=== PATIENT | female | born 1950 | race Caucasian/White ===

== ENCOUNTER 2020-01-23 05:54 | Inpatient (IN) | payer OTHER ==
[2020-01-17 10:37] LABS: Absolute Lymphocytes (CBC) 2.4 K/uL (0.7-4.9); Basophils % 0.6 % (0-1.3); Hematocrit 44.7 % (36.0-45.0); MPV 7.7 fL (7.6-11.3); RBC Red Blood Cell Count 5.21 M/uL (3.86-4.86)
--- NOTE | 2020-01-17 10:40 | RAD REPORT ---
EXAM DESCRIPTION: RAD - Chest Pa And Lat (2 Views) - 01/17/2020 10:29 am CLINICAL HISTORY: pre op, pending knee replacement COMPARISON: Portable August 2017 ; two view chest July 2014 TECHNIQUE: Frontal and lateral views of the chest were obtained. FINDINGS: The lungs are clear. Interstitial pattern matches comparison. Left hemidiaphragm elevatio n again noted. Heart size is normal and central vasculature is within normal limits. No pleural effu helio or pneumothorax seen. No acute bony finding noted. No aortic abnormality. IMPRESSION: No acute cardiopulmonary process. No significant change from comparison.
[2020-01-17 10:42] LABS: Protime INR 0.93
--- OUTSIDE RECORDS SUMMARY | 2020-01-23 05:56 | XMS REPORT ---
:1950 Author Organization eClinicalWorks Care Team Providers Name Role Phone Donald Holly Provider Role Unavailable Allergies No Known Allergies Problems Problem Type Condition Code Onset Dates Condition Statu s Problem Chronic obstructive pulmonary J44.9 Active disease Problem Cataract H26.9 Active Problem Hypercholesteremia E78.00 Active Problem Environmental allergies Z91.09 Acti ve Problem Gastroesophageal reflux disease, K21.9 Active esophagitis presence not specified Problem Primary osteoarthritis of right M17.11 Active knee Problem Anxiety F41.9 Active Problem Benign essential HTN I10 Active Problem Conductive hearing loss, bilateral H90.0 Active Problem 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
--- OUTSIDE RECORDS SUMMARY | 2020-01-23 05:56 | XMS REPORT | Continuity of Care Document ---
:1950 Author Organization [facility] t Address [address] [place] [address] Care Team Providers Name Role Phone Jesus CHINCHILLA Attending Clinician Pc, Echo Room 1 - Attending Clinician Unavailable Problems Condition Condition Condition Status Onset Resolution Last Treating Co mments Source Name Details Category Date Date Treatment Clinician Date Complete Complete Problem Active [facility] traumatic [facility] - amputation amputation Me moria at elbow at elbow l level, level, Outpati right arm, right arm, en t subsequent subsequent Cl inics encounter encounter Muscular Muscular Problem [facility] dyst[facility] Phantom Phantom Problem Active [facility] limb pain limb pain [facility] Gastroesop Gastroesop Problem Active [facility] hageal hageal [facility] - reflux reflux Memoria disease, disease, l esophagiti esophagiti Ou tpati s presence s presence en t not not Clinics specified specified Hyperchole Hyperchole Problem Active [facility] steremia steremia [facility] Chronic Chronic Problem Active [facility] obstructiv obstructiv Jackelyn kes - e e Memoria pulmonary pulmonary l disease disease Outpati ent Clinics Osteoarthr Osteoarthr Problem Active [facility] itis of itis of [facility] - both knees both knees Me moria l Outpati ent Clinics Benign Benign Problem Active [facility] essential essential Luke s - HTN HTN [facility] Cataract Cataract Problem [facility] Anxiety Anxiety Problem Active [facility] Conductive Conductive Problem Active [facility] hearing hearing [facility] - loss, loss, Memoria bilateral bilateral l Outpati ent [facility] Problem Active [facility] brisa brisa [facility] - allergies allergies Geoffrey chanel l [facility] Elevated Elevated Problem Active [facility] serum serum [facility] - creatinine creatinine Me moria l [facility] Prediabete Prediabete Problem Active [facility] Primary Primary Diagnosis Active [facility] osteoarthr osteoarthr Jackelyn kes - itis of itis of Memoria right knee right knee l [facility] Pain, Pain, Diagnosis Active [facility] joint, joint, [facility] - knee, knee, Memoria right right l [facility] Allergies, Adverse Reactions, Alerts This patient has no known allergies or adverse reactions. Medications Ordered Filled Start Stop Current Ordering Indication Dosage Frequency Signature Comments Components Source Medication Medication Date Date Medication? Clinician (SIG) Name Name Boy Brunson Yes Donald [address] [facility] 7-01 Holly as needed [facility] - 00:[facility]: Memoria 00 l [facility] Atorvastati Atorvastati 2018-07 Yes Donald [address] [facility] n Calcium n Calcium 1-20 Holly [facility] - [facility]: Memoria 00 l [facility] Arnuity Arnuity Yes Donald [address] [facility] Ellipta Ellipta Holly [facility] Xopenex HFA Xopenex HFA Yes Donald [address] [facility] Holly needed [facility] Stiolto Stiolto Yes Donald [address] Respimat Respimat [facility] Losartan Losartan Yes Donald [address] [facility] Amlodipine Amlodipine Yes Donald [address] Besylate Besylate [facility] Furosemide Furosemide Yes Donald 1 tab(s) [facility] Holly once a day [facility] - orally 90 Memoria days l [facility] Pantoprazol Pantoprazol Yes Donald 1 tab(s) [facility] e Sodium e Sodium Holly once a day L ukes - orally 90 Memoria days l [facility] Lorazepam Lorazepam Yes Donald [address] Holly [facility] Meloxicam Meloxicam Yes Donald [address] [facility] Holly [facility] Tramadol Tramadol Yes Donald not [facility] HCl HCl Holly defined [facility] Lorazepam Lorazepam Yes Donald not [facility] Holly defined [facility] Xarelto Xarelto Yes Donald [address] [facility] Immunizations Ordered Filled Immunization Date Status Comments Sour e Immunization Name Name PNEUMAVAX 23 PNEUMAVAX 23 2019-06-[address] Shlomo es - 00:00:00 [facility] Procedures This patient has no known procedures. Encounters Start End Encounter Admission Attending Care Care Encounter Source Date/Time Date/Time Type Type Clinicians Facility Department ID 2020-01-16 2020-01-16 [facility] [id number] [address] 10:45[facility]00 10:45[facility]00 [facility] 2020-01-15 2020-01-15 [facility] [id number] [address] 10:00[facility]00 10:00:00 [facility] 2019-11-26 2019-11-26 [facility] [id number] 14:47:00 14:47:00 [facility] 2019-10-16 2019-10-16 [facility] [id number] 13[facility]50:00 13:50:00 [facility] 2019-10-04 2019-10-04 [facility] [id number] 14:01:00 14:01:00 t [facility] 2019-09-21 2019-09-21 Telephone [facility], [facility] [id number] 00:00:00 00:00:00 [facility] [id number] [place] [id number] [place] [address] [phone] Primary & 059 Specialty Care 2019-09-17 2019-09-17 [facility] [id number] 15:39:00 15:39:00 [facility] 2019-08-29 2019-09-11 Office Jesus, [facility] [id number] 12:40:30 00:40:53 [facility] [id number] [place] [id number] Professio [phone] nal 059 [facility] 2019-09-10 2019-09-10 Laboratory Pc, Adc [facility] [id number] 14:45:04 15:45:04 Only Echo Room 1 [place] [id number] - [place] [id number] Professio [phone] nal 059 [facility] 2019-08-06 2019-08-06 [facility] [id number] 10:40:00 10:40:00 [facility] 2019-08-03 2019-08-03 [facility] [id number] 09:35:00 09:35:00 t [facility] 2019-07-31 2019-07-31 [facility] [id number] 14:00:00 14:00:00 t [facility] 2019-06-06 2019-06-06 [facility] [id number] 15:00:00 15:00:00 t Butch Rae [facility] 2019-05-07 2019-05-07 [facility] [id number] 15:00:00 15:00:00 [facility] 2019-04-05 2019-04-05 [facility] [id number] 14:40:00 14:40:00 t Butch Rae [facility] 2019-01-23 2019-01-23 [facility] [id number] 15:30:00 15:30:00 t [facility] 2019-01-16 2019-01-16 [facility] [id number] 15:30:00 15:30:00 t [facility] 2019-01-09 2019-01-09 [facility] [id number] 14:00:00 14:00:00 t [facility] 2019-01-09 2019-01-09 [facility] [id number] 09:40:00 09:40:00 t Butch Rae [facility] 2018-09-04 2018-09-04 [facility] [id number] 13:30:00 13:30:00 t [facility] 2018-07-03 2018-07-03 [facility] [id number] 10:00:00 10:00:00 t [facility] 2018-06-26 2018-06-26 [facility] [id number] 14:00:00 14:00:00 t [facility] 2018-03-21 2018-03-21 [facility] [id number] 15:23:00 15:23:00 t Butch Rae [facility] 2018-02-16 2018-02-16 [facility] [id number] 10:00:00 10:00:00 t [facility] Results This patient has no known results.
--- OUTSIDE RECORDS SUMMARY | 2020-01-23 05:57 | XMS REPORT ---
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.0 Active Problem Elevated serum creatinine R79.89 Ac tive Problem Osteoarthritis of both knees M17.0 Active Medications Medication Code Code Instructions Start End Status Dosage System Date Date Losartan [facility] 51038616720 100 mg Orally Active 1 tab let Potassium Once a day Stiolto [facility] 42123618011 2.5-2.5 MCG/ACT Active 2 pu ffs Respimat Inhalation Once a day Lorazepam [facility] [address]-93 Active not defined Furosemide [facility] 79702168471 20 MG Active 1 tab(s) once a day orally 90 days Atorvastatin ND 43340692088 20 MG Orally Q May 20, Active 1 tablet Calcium HS 2019 Arnuity Ellipta [facility] 48157108807 100 MCG/ACT Active 1 puff Inhalation Once a day Lorazepam NDC 0 0.5 mg Oral as Active 1 tab needed daily Tramadol HCl NDC 0 Active not defined Xopenex HFA [facility] 74606375929 45 MCG/ACT Active 1 puf f as Inhalation needed every 4 hrs Pantoprazole [facility] 79409511119 40 MG Active 1 tab(s ) Sodium once a day orally 90 days Amlodipine [facility] 42837567567 10 MG Orally Active 1 ta blet Besylate Once a day Meloxicam [facility] 55000696404 15 MG Orally Active 1 tab let Once a day Results No Known Results Summary Purpose eClinicalWorks Submission
--- OUTSIDE RECORDS SUMMARY | 2020-01-23 05:57 | XMS REPORT ---
:1950 Author Organization eClinicalWorks Care Team Providers Name Role Phone Donald Holly Provider Role Unavailable Allergies, Adverse Reactions, Alerts Substance Reaction Event Type N.K.D.A. Info Not Available Non Drug Allergy Problems Problem Type Condition Code Onset Dates [...] Start End Status Dosage System Date Date Lorazepam NDC 0 0.5 mg Oral as Active 1 tab needed daily Arnuity Ellipta [facility] 40080063185 100 MCG/ACT Active 1 puff Inhalation Once a day Xopenex HFA [facility] 12733317215 45 MCG/ACT Active 1 puf f as Inhalation needed every 4 hrs Tramadol HCl NDC 0 Active not defined Amlodipine ND 81248232871 10 MG Orally Active 1 ta blet Besylate Once a day Losartan ND 92327007363 100 mg Orally Active 1 tab let Potassium Once a day Meloxicam ND 17423177447 15 MG Orally Active 1 tab let Once a day Pantoprazole ND 83500184476 40 MG Active 1 tab(s ) Sodium once a day orally 90 days Furosemide ND 49396339783 20 MG Active 1 tab(s) once a day orally 90 days Lorazepam [facility] [address]-82 Active not defined Xarelto [facility] 36991345977 10 MG Orally Active 1 table t Once a day [place] [facility] 13482215403 7.5-325 MG January 15, Active 1 tablet Orally every 2019 as needed hrs Atorvastatin [facility] 72584544327 20 MG Orally Q Jun 06, Active 1 tablet Calcium HS 2018 Stiolto [facility] 29115844043 2.5-2.5 MCG/ACT Active 2 pu ffs Respimat Inhalation Once a day Results No Known Results Summary Purpose eClinicalWorks Submission
[2020-01-23] MEDS ORDERED: Ringers Lactate 1,000 ML IV ONE ×3 (06:17→10:03)
[2020-01-23] MEDS ORDERED: CEFAZOLIN/SWI 2gm 2 GM/20 ML SYR ONE (06:18)
[2020-01-23] MEDS ORDERED: FENTANYL CITR 100 MCG/2 ML ONE ×2 (06:35→08:50)
[2020-01-23] MEDS ORDERED: MIDAZOLAM HCL 2 MG/2 ML INJ ONE (06:36)
[2020-01-23] MEDS ORDERED: propofoL 200 MG/20 ML VIAL IV ONE (06:36)
[2020-01-23] MEDS ORDERED: LIDOCAINE 2% MPF 5 ML VIAL ONE ×2 (06:36→06:46)
[2020-01-23] MEDS ORDERED: dexAMETHasone 10 MG/ML VIAL ONE (06:46)
[2020-01-23] MEDS ORDERED: BUPIVACAINE 0.25% PF 10 ML VIAL ONE (06:46)
[2020-01-23] MEDS ORDERED: NS 0.9% VIAL 20 ML ONE (06:46)
[2020-01-23] MEDS ORDERED: HYDROMORPHONE HCL 1 MG/ML INJ ONE ×2 (07:37→11:16)
[2020-01-23] MEDS ORDERED: ROCURONIUM 50 MG/5 ML VIAL IV ONE (07:40)
[2020-01-23] MEDS ORDERED: TRANEXAMIC ACID 1,000 MG in NA CHLORIDE 0.9% 50 ML IV SCH (07:45)
[2020-01-23] MEDS ORDERED: KETAMINE HCL 500 MG/5 ML VIAL ONE (07:57)
[2020-01-23] MEDS: BUPIVACA 0.5%/EPI 0.0005%/PF 30 ML VIAL ONE ×2 (08:27→09:30)
[2020-01-23] MEDS ORDERED: ONDANSETRON 4 MG/2 ML VIAL ONE ×2 (08:32→10:57)
[2020-01-23] MEDS ORDERED: KETOROLAC 30 MG/ML INJ ONE (10:03)
[2020-01-23] MEDS ORDERED: LORAZEPAM 0.5 MG TABLET PO PRN (10:41)
--- NOTE | 2020-01-23 10:41 | P.BOP ---
Preoperative diagnosis: right knee osteoarthritis Postoperative diagnosis: same Primary procedure: right total knee arthroplasty Java [id number] Lead: NONE,NONE Estimated blood loss: 20 cc Specimen: right knee bone remnants Findings: see dictation Anesthesia: General Complications: None Drain(s): Urinary catheter Implants: Biomet 7 CR STD femur, E tibia, 35 patela, 10 mm CR poly Fluids & blood products: per anesthesia record; TT: 91 mins @ 300 mmHg Transferred to: Recovery Room Condition: Good
[2020-01-23] MEDS ORDERED: DOCUSATE NA 100 MG CAP PO PRN (10:42)
[2020-01-23] MEDS ORDERED: TRAMADOL HCL 50 MG TAB PO PRN (10:47)
[2020-01-23] MEDS ORDERED: PROMETHAZINE INJ 25 MG/ML AMP ONE (10:57)
[2020-01-23 11:18] LABS: Hematocrit 44.6 % (36.0-45.0)
--- NOTE | 2020-01-23 12:00 | RAD REPORT ---
EXAM DESCRIPTION: RAD - Knee Right 2 View - 01/23/2020 11:12 am CLINICAL HISTORY: Right knee surgery FINDINGS: A right knee arthroplasty has been performed. The prosthesis is in good position. No fracture or dislocation
[2020-01-23 12:12] VITALS: BMI 37.9
[2020-01-23] MEDS: MORPHINE 2 MG/ML SYR IV PRN ×2 (12:53→20:03)
[2020-01-23] MEDS: ONDANSETRON 4 MG/2 ML VIAL IV PRN ×2 (12:53→20:03)
[2020-01-23] MEDS: HYDROCODONE/APAP 7.5/325 MG TAB PO PRN ×2 (16:13→22:49)
[2020-01-23] MEDS: CEFAZOLIN/SWI 2gm 2 GM/20 ML SYR IV SCH (18:47)
[2020-01-23] MEDS: ATORVASTATIN 20 MG TAB PO SCH (20:04)
[2020-01-24] MEDS: MORPHINE 2 MG/ML SYR IV PRN ×2 (00:11→06:45)
[2020-01-24] MEDS: CEFAZOLIN/SWI 2gm 2 GM/20 ML SYR IV SCH ×2 (00:11→09:04)
[2020-01-24] MEDS: HYDROCODONE/APAP 7.5/325 MG TAB PO PRN ×3 (02:52→21:19)
[2020-01-24 05:51] LABS: Absolute Lymphocytes (CBC) 1.1 K/uL (0.7-4.9); Basophils % 0.2 % (0-1.3); Hematocrit 36.7 % (36.0-45.0); Lymphocytes % 6.1 % (15.3-44.8); MPV 7.8 fL (7.6-11.3); RBC Red Blood Cell Count 4.25 M/uL (3.86-4.86)
[2020-01-24 05:52] LABS: Potassium 4.4 mmol/L (3.5-5.1)
--- NOTE | 2020-01-24 06:35 | OP ---
Date of Procedure: 01/23/2020 Surgeon: Donald Holly MD Preoperative Diagnosis: Right knee osteoarthritis. Postoperative Diagnosis: Right knee osteoarthritis. Procedure Performed: Right total knee arthroplasty. Anesthesia: General endotracheal. Fluids: Per Anesthesia record. Estimated Blood Loss: 20 mL. Complications: None. Implants: Biomet size 7 standard CR femur, size E tibia, size 35 patella, and size 10 mm CR poly. Indication For Procedure: Samira is a 69-year-old female presenting to my clinic with signs and symptoms and x-ray findings consistent with right knee osteoarthritis. She failed conservative treatment measures including corticosteroid as well as viscosupplementation injections. She had continued pain and difficulty with ADLs secondary to her right knee osteoarthritis. I discussed risks and benefits associated with operative and nonoperative treatment including total knee arthroplasty. She expressed understanding and elected to proceed with total knee arthroplasty. Description Of Procedure: After informed consent was obtained, the patient was identified in the preoperative holding area. The right lower extremity was marked. The patient was then taken to the PACU. She underwent a right-sided adductor canal block performed by Anesthesia to aid with postoperative pain control. After receiving the block, she was taken back to the operating room, transferred to the operating table in the supine fashion and placed under general endotracheal anesthesia. Right lower extremity was then prepped and draped in the usual sterile fashion. A time-out was initiated. The correct patient and procedure were confirmed and identified. The patient did receive her preoperative prophylactic antibiotics. Right lower extremity was exsanguinated using an Esmarch and the tourniquet was inflated at 300 mmHg. Approximately, a 16 cm longitudinal incision was made over the anterior aspect of the knee. Dissection was then taken down to the extensor mechanism. A median parapatellar approach was taken. Patella was everted. Fat pad was excised. Extensor mechanism was then elevated off the proximal medial tibia. A lateral release was performed on the patellofemoral joint. Synovectomy was performed without complications. The lateral and medial menisci were excised. Using a preoperative MRI of her right knee cutting guide blocks were made preoperatively. A guide was then placed over the distal femur and snapped into position. Guide pin was then placed through the guide into the distal femur. A distal femoral cutting guide was then placed over the guide pin and the distal femur was then cut. A 4-in-1 chamfer guide was then placed onto the distal surface of the distal femur. Anterior and posterior cuts were made as well as anterior and posterior chamfer cuts for size 7 CR femur. The tibial guide was then placed on the proximal tibia. Alignment guide and paige wing was then used to ensure proper alignment of the cut. This was confirmed. Pins were then placed. Proximal tibia cutting guide was then placed and the proximal tibia was cut. A size 10 mm spacer was placed and there was good overall alignment as well as flexion and extension gaps in an extended and flexed position. The wound was then irrigated thoroughly with normal saline. The undersurface of the patella was then cut and a size 35 patella was selected. The tibia was punched and a size E tibia was selected. Cement was then prepared on the back table and then was placed on the proximal tibia. Size E tibia was placed. Excess cement was removed. Size 7 standard femur was then placed and a 10 mm trial poly was then placed. The knee was held in extension until the cement hardened. Cement was placed on the undersurface of the patella and a size 35 patella button was placed. Once the cement was hard and excess cement was removed, the knee was then ranged. The patient had good overall and good range of motion and good stability in flexion and extension. A final trial poly was removed and a size 10 mm CR poly was placed. Again, the knee was ranged and was overall stable with good range of motion. The wound was again irrigated thoroughly with normal saline. The extensor mechanism was then approximated using a #1 Vicryl in an interrupted and running fashion. The deep fascia was approximated using 0 Vicryl. Subcutaneous tissue was approximated using a 2-0 Vicryl. Skin was approximated using jenaro. Tourniquet was let down prior to closure. Hemostasis was achieved using Bovie electrocautery. Sterile dressings were placed. The patient was awakened and transferred to PACU in stable condition. Postoperative Plan: She will be weightbearing as tolerated. Physical Therapy will be consulted to aid with mobilization. JOSE/RICK Voice ID: [id number] Report ID: [id number] MIRANDA
[2020-01-24] MEDS: ENOXAPARIN 30 MG/0.3 ML SQ SCH ×2 (06:40→17:18)
[2020-01-24 07:43] LABS: Blood Morphology Comment NOT SEEN (NOT SEEN); Platelet Estimate ADEQ
[2020-01-24] MEDS: Tiotropium Br/Olodaterol Hcl [Stiolto Respimat Inhal Spray] IH SCH (09:00)
[2020-01-24] MEDS: ARNUITY ELLIPTA 200 MCG IH SCH (09:00)
[2020-01-24] MEDS: PANTOPRAZOLE 40MG TABLET PO SCH (09:01)
[2020-01-24] MEDS: CELECOXIB 100 MG CAPSULE PO SCH (09:01)
[2020-01-24] MEDS: FUROSEMIDE 20 MG TABLET PO SCH (09:05)
[2020-01-24] MEDS: AMLODIPINE 10 MG TAB PO SCH (09:05)
--- NOTE | 2020-01-24 10:37 | P.PN ---
Subjective Date of Service: 01/24/20 Chief Complaint: s/p right TKA Subjective: Working w/ PT reports pain to the back and knee last night. pain improved with removing CPM last night. Physical Examination - Vital Signs Temperature: 97.5 F Blood Pressure: 116/57 Pulse: 81 Respirations: 19 Pulse Ox (%): 96 - Physical Exam General: Alert, In no apparent distress Musculoskeletal: Other (RLE: dressing c/d/i; +EHL/FHL/GSC/TA; sensation grossly intact distally) - Studies Laboratory Data (last 24 hrs) 01/24/20 05:15: Sodium 137, Potassium 4.4, BUN 21 H, Creatinine 1.26, Glucose 155 H 01/24/20 05:15: WBC 18.1 H D, Hgb 12.0 D, Hct 36.7 D, Plt Count 337 01/23/20 11:06: Hgb 14.6, Hct 44.6 Assessment And Plan - Plan Samira is a 69 yo female s/p right total knee arthroplasty POD#1 -continue with PT; WBAT RLE -lovenox for DVT prophylaxis -plan on d/c home tomorrow in AM
[2020-01-24] MEDS: LOSARTAN POTASSIUM 50 MG TABLET PO SCH (11:07)
[2020-01-24] MEDS: ATORVASTATIN 20 MG TAB PO SCH (21:19)
[2020-01-25] MEDS: HYDROCODONE/APAP 7.5/325 MG TAB PO PRN ×3 (05:08→21:17)
[2020-01-25] MEDS: ENOXAPARIN 30 MG/0.3 ML SQ SCH ×2 (05:10→17:40)
[2020-01-25] MEDS: Tiotropium Br/Olodaterol Hcl [Stiolto Respimat Inhal Spray] IH SCH (09:00)
[2020-01-25] MEDS: ARNUITY ELLIPTA 200 MCG IH SCH (09:00)
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
[2020-01-25] MEDS: AMLODIPINE 10 MG TAB PO SCH (11:48)
[2020-01-25] MEDS: PANTOPRAZOLE 40MG TABLET PO SCH (11:48)
[2020-01-25] MEDS: FUROSEMIDE 20 MG TABLET PO SCH (11:48)
[2020-01-25] MEDS: CELECOXIB 100 MG CAPSULE PO SCH (11:48)
[2020-01-25] MEDS: LOSARTAN POTASSIUM 50 MG TABLET PO SCH (11:48)
[2020-01-25] MEDS: ATORVASTATIN 20 MG TAB PO SCH (21:17)
[2020-01-26] MEDS: ENOXAPARIN 30 MG/0.3 ML SQ SCH ×2 (05:08→17:02)
[2020-01-26] MEDS: ARNUITY ELLIPTA 200 MCG IH SCH (09:00)
[2020-01-26] MEDS: Tiotropium Br/Olodaterol Hcl [Stiolto Respimat Inhal Spray] IH SCH (09:00)
[2020-01-26] MEDS: LOSARTAN POTASSIUM 50 MG TABLET PO SCH (09:21)
[2020-01-26] MEDS: FUROSEMIDE 20 MG TABLET PO SCH (09:22)
[2020-01-26] MEDS: AMLODIPINE 10 MG TAB PO SCH (09:22)
[2020-01-26] MEDS: CELECOXIB 100 MG CAPSULE PO SCH (09:22)
[2020-01-26] MEDS: PANTOPRAZOLE 40MG TABLET PO SCH (09:22)
[2020-01-26] MEDS: HYDROCODONE/APAP 7.5/325 MG TAB PO PRN ×3 (09:26→17:02)
--- NOTE | 2020-01-26 12:22 | P.PN ---
Subjective Date of Service: 01/26/20 Chief Complaint: s/p right TKA Subjective: Working w/ PT reports continued pain with the right knee. She has been progressing slowly with PT. Her RUE amputation has been causing difficulty stabilizing herself with PT and mobilization. She had some low O2 sats this morning and the hospitalist service was consulted. Physical Examination - Vital Signs Temperature: 98.2 F Blood Pressure: 135/82 Pulse: 101 Respirations: 18 Pulse Ox (%): 92 - Physical Exam General: Alert, In no apparent distress Musculoskeletal: Other (RLE: dressing c/d/i; +EHL/FHL/GSC/TA; sensation grossly intact distally; minimal swelling) Assessment And Plan - Plan Samira is a 69 yo female s/p right total knee arthroplasty POD#3 -hold d/c as patient progressing slowly -consult inpatient rehab to aid with rehabilitation as RUE mid humerus amputation causing difficulty with current therapy -continue with PT; WBAT RLE -lovenox for DVT prophylaxis -hospitalist service to aid with medical management
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
--- NOTE | 2020-01-26 15:03 | RAD REPORT ---
EXAM DESCRIPTION: RAD - Chest Single View - 01/26/2020 2:28 pm CLINICAL HISTORY: physician order, decreased O2 saturation COMPARISON: Two view chest January 16 TECHNIQUE: AP portable chest image was obtained 01/26/2020 2:28 pm . FINDINGS: No peripheral mass or consolidation. Left hemidiaphragm elevation again noted. Interstitia l pattern is not substantially different from the prior study when comparing current AP to prior PA t echnique. Heart size and vasculature are slightly more prominent. This can be explained by the techni que differences no patient can be monitored for any early failure or volume overload. No measurable pleural effusion and no pneumothorax. No acute bony abnormality seen. No acute aortic findings suspected. IMPRESSION: Chest is not substantially different from comparison. Slightly more prominent heart and vasculature is probably due to AP technique. However, patient can b e monitored for early failure or volume overload.
[2020-01-26] MEDS: ATORVASTATIN 20 MG TAB PO SCH (21:33)
[2020-01-27] MEDS: HYDROCODONE/APAP 7.5/325 MG TAB PO PRN ×3 (00:08→20:56)
[2020-01-27] MEDS: ENOXAPARIN 30 MG/0.3 ML SQ SCH ×2 (05:46→18:30)
[2020-01-27] MEDS: Tiotropium Br/Olodaterol Hcl [Stiolto Respimat Inhal Spray] IH SCH (09:00)
[2020-01-27] MEDS: ARNUITY ELLIPTA 200 MCG IH SCH (09:06)
[2020-01-27] MEDS: LOSARTAN POTASSIUM 50 MG TABLET PO SCH (09:09)
[2020-01-27] MEDS: AMLODIPINE 10 MG TAB PO SCH (09:10)
[2020-01-27] MEDS: CELECOXIB 100 MG CAPSULE PO SCH (09:10)
[2020-01-27] MEDS: FUROSEMIDE 20 MG TABLET PO SCH (09:11)
[2020-01-27] MEDS: PANTOPRAZOLE 40MG TABLET PO SCH (09:11)
--- NOTE | 2020-01-27 10:52 | P.PN ---
Subjective Date of Service: 01/27/20 Chief Complaint: s/p right TKA Subjective: Improving Review of Systems 10-point ROS is otherwise unremarkable Respiratory: Cough, Shortness of Breath Physical Examination - Vital Signs Temperature: 97.7 F Blood Pressure: 128/68 Pulse: 92 Respirations: 16 Pulse Ox (%): 90 - Physical Exam General: Alert, In no apparent distress HEENT: Atraumatic, PERRLA, EOMI Neck: Supple, JVD not distended Respiratory: Normal air movement, Expiratory wheezes Cardiovascular: Regular rate/rhythm, Normal S1 S2 Gastrointestinal: Normal bowel sounds, No tenderness Musculoskeletal: No tenderness Integumentary: No rashes Neurological: Normal speech, Normal tone, Normal affect Lymphatics: No axilla or inguinal lymphadenopathy Assessment & Plan Discharge Plan: Penitentiary Plan to discharge in: 24 Hours - Code Status/Comfort Care Code Status Assessed: Yes Physician Review Additional Text: Assessment Hypoxia secondary to chronic bronchitis Status post right total knee arthroplasty Hypertension GERD Hyperlipidemia Muscular dystrophy Plan Hypoxia secondary to chronic bronchitis: Chest x-ray negative for any acute findings, patient continue with her home inhalers. Patient currently only req uiring 1 L per nasal cannula at this time to maintain saturations. Will attempt to wean patient off of oxygen. Anticipate patient being placed in the skilled facility or inpatient rehab. Will discuss with social director tomorrow. Status post right total knee arthroplasty: Continue with orthopedic recommendations. There was a consult for inpatient rehab the patient prefers that she goes to another facility. Consult for social work nurse placed to determine further discharge planning. Hypertension: Patient's home medications have been continued, will monitor and adjust as necessary. GERD: Patient's home medications have been continued will adjust as necessary. Hyperlipidemia: Continue patient's home medication. Muscular dystrophy: Fall precautions. Critical Care: No Time Spent Managing Pts Care (In Minutes): 55
[2020-01-27] MEDS ORDERED: ONDANSETRON 4 MG (ODT) TAB PO PRN (13:02)
[2020-01-27] MEDS: ATORVASTATIN 20 MG TAB PO SCH (20:56)
--- NOTE | 2020-01-27 21:39 | P.PN ---
Subjective Date of Service: 01/27/20 Chief Complaint: s/p right TKA Subjective: Improving, Working w/ PT reports some improvement of her symptoms today. She has been using her home inhalers and reports improvement with her breathing. Physical Examination - Vital Signs Temperature: 98.8 F Blood Pressure: 135/63 Pulse: 92 Respirations: 16 Pulse Ox (%): 90 - Physical Exam General: Alert, In no apparent distress Musculoskeletal: Other (RLE: dressing c/d/i; no significant swelling; +EHL/FHL/GSC/TA; sensation grossly intact distally) Assessment And Plan - Plan Samira is a 69 yo female s/p right total knee arthroplasty POD#4 -hold d/c as patient progressing slowly -consult inpatient rehab to aid with rehabilitation as RUE mid humerus amputation causing difficulty with current therapy -continue with PT; WBAT RLE -lovenox for DVT prophylaxis -hospitalist service to aid with medical management; weaning off O2
[2020-01-28] MEDS: ENOXAPARIN 30 MG/0.3 ML SQ SCH ×2 (05:23→17:23)
[2020-01-28] MEDS: Tiotropium Br/Olodaterol Hcl [Stiolto Respimat Inhal Spray] IH SCH (09:00)
[2020-01-28] MEDS: ARNUITY ELLIPTA 200 MCG IH SCH (09:00)
[2020-01-28] MEDS: LOSARTAN POTASSIUM 50 MG TABLET PO SCH (09:13)
[2020-01-28] MEDS: HYDROCODONE/APAP 7.5/325 MG TAB PO PRN ×3 (09:14→17:23)
[2020-01-28] MEDS: CELECOXIB 100 MG CAPSULE PO SCH (09:15)
[2020-01-28] MEDS: AMLODIPINE 10 MG TAB PO SCH (09:15)
[2020-01-28] MEDS: FUROSEMIDE 20 MG TABLET PO SCH (09:15)
[2020-01-28] MEDS: PANTOPRAZOLE 40MG TABLET PO SCH (09:15)
[2020-01-28 09:49] VITALS: O2SAT 93
[2020-01-28 11:14] LABS: Absolute Lymphocytes (CBC) 1.8 K/uL (0.7-4.9); Basophils % 1.1 % (0-1.3); Hematocrit 34.6 % (36.0-45.0); Lymphocytes % 17.4 % (15.3-44.8); MPV 8.2 fL (7.6-11.3); RBC Red Blood Cell Count 3.98 M/uL (3.86-4.86)
--- NOTE | 2020-01-28 12:02 | P.PN ---
Subjective Date of Service: 01/28/20 Chief Complaint: s/p right TKA Review of Systems Unremarkable Physical Examination - Vital Signs Temperature: 98.9 F Blood Pressure: 133/56 Pulse: 94 Respirations: 18 Pulse Ox (%): 90 - Physical Exam General: Alert, In no apparent distress HEENT: Atraumatic, PERRLA, EOMI Neck: Supple, JVD not distended Respiratory: Clear to auscultation bilaterally, Normal air movement Cardiovascular: Regular rate/rhythm, Normal S1 S2 Gastrointestinal: Normal bowel sounds, No tenderness Musculoskeletal: No tenderness Integumentary: No rashes Neurological: Normal speech, Normal tone, Normal affect Lymphatics: No axilla or inguinal lymphadenopathy - Studies Laboratory Data (last 24 hrs) 01/28/20 10:51: WBC 10.5 D, Hgb 11.7 L, Hct 34.6 L, Plt Count 302 Assessment & Plan Discharge Plan: Other (Rehabilitation) - Code Status/Comfort Care Code Status Assessed: Yes (Patient is full code) Physician Review Additional Text: Assessment Hypoxia secondary to chronic bronchitis Status post right total knee arthroplasty Hypertension GERD Hyperlipidemia Muscular dystrophy Plan Hypoxia secondary to chronic bronchitis: Patient saturations has improved, patient is now on room air. Patient's sats in the low 90s on room air. Status post right total knee arthroplasty: Pending placement with rehab facility. Hypertension: Patient's home medications have been continued, will monitor and adjust as necessary. GERD: Patient's home medications have been continued will adjust as necessary. Hyperlipidemia: Continue patient's home medication. Muscular dystrophy: Fall precautions. Critical Care: No Time Spent Managing Pts Care (In Minutes): 55
[2020-01-28 12:11] LABS: Potassium 4.3 mmol/L (3.5-5.1)
--- NOTE | 2020-01-28 13:01 | P.PN ---
Subjective Date of Service: 01/28/20 Chief Complaint: s/p right TKA Subjective: Improving, Working w/ PT reports continued improvement of her symptoms today. Physical Examination - Vital Signs Temperature: 98.9 F Blood Pressure: 133/56 Pulse: 94 Respirations: 18 Pulse Ox (%): 90 - Physical Exam General: Alert, In no apparent distress Musculoskeletal: Other (RLE: some RLE swelling; dressing c/d/i; +EHL/FHL/GSC/TA; sensation grossly intact distally) - Studies Laboratory Data (last 24 hrs) 01/28/20 11:42: Sodium 142, Potassium 4.3, BUN 16, Creatinine 0.91, Glucose 115 H 01/28/20 10:51: WBC 10.5 D, Hgb 11.7 L, Hct 34.6 L, Plt Count 302 Assessment And Plan - Plan Samira is a 69 yo female s/p right total knee arthroplasty POD#5 -await inpatient rehab evale to aid with rehabilitation as RUE mid humerus amputation causing difficulty with current therapy -continue with PT; WBAT RLE -lovenox for DVT prophylaxis; with RLE swelling will order doppler -hospitalist service to aid with medical management; breathing improving per patient
--- NOTE | 2020-01-28 16:45 | RAD REPORT ---
EXAM DESCRIPTION: US - Extremity Venous Uni Ltd - 01/28/2020 4:05 pm CLINICAL HISTORY: right lower extremity swelling Leg swelling and edema. COMPARISON: No comparisons FINDINGS: Right lower extremity venous system was interrogated with Doppler technique. Normal flow, compressibility and augmentation was noted. There is no DVT present. IMPRESSION: No evidence of right lower extremity deep venous thrombosis.
[2020-01-28 17:05] VITALS: BP 125/60; TEMP 97.3
[2020-01-28] MEDS: ATORVASTATIN 20 MG TAB PO SCH (20:22)
== END 2020-01-28 20:51 | DRG 470 ==
LOC: OR 05:54 → 2ND 10:43
PROVIDERS: ADMIT Orthopaedic Surgery Sports Medicine; ATTEND Orthopaedic Surgery Sports Medicine
PROC: 0SRC0J9 Replacement of Right Knee Joint with Synthetic Substitute, Cemented, Open Approach (ICD-10-PCS; principal; 2020-01-23 07:30)
DX: M17.11 Unilateral primary osteoarthritis, right knee (principal); J44.9 Chronic obstructive pulmonary disease, unspecified; R09.02 Hypoxemia; I10 Essential (primary) hypertension; E78.5 Hyperlipidemia, unspecified; E78.00 Pure hypercholesterolemia, unspecified; G71.00 Muscular dystrophy, unspecified; F41.9 Anxiety disorder, unspecified; K21.9 Gastro-esophageal reflux disease without esophagitis; Z11.59 Encounter for screening for other viral diseases; Z89.221 Acquired absence of right upper limb above elbow
CPT/HCPCS: 36415; 71045; 71046; 80048; 85014; 85018; 85025; 85610; 85730; 88304; 88305; 88311; 93971; 97110; 97112; 97116; 97139; 97161; 97530; J0690; J1100; J1170; J1650; J2250; J2270; J2405; J2550; J2704; J3010; J7120; U0002

== ENCOUNTER 2022-08-27 17:27 | Observation (INO) | payer OTHER ==
--- OUTSIDE RECORDS SUMMARY | 2022-08-27 17:31 | XMS REPORT | Continuity of Care Document ---
:1950 Author Organization [facility] t Address [address] [place] [address] Care Team Providers Name Role Phone [phone] Attending Clinician Unavailable Arina Horner Attending Clinician Unavailable DONALD HOLLY Attending Clinician Unavailable ANITRA Attending Clinician Unavailable Ray Salinas Attending Clinician [phone] Jason Knowles MD Attending Clinician Pc, Adc Echo Room 1 - Attending Clinician Unavailable JASON KNOWLES Attending Clinician Unavailable [id number] Admitting Clinician Unavailable ANITRA Admitting Clinician Unavailable Payers Payer Name Policy Type Policy Number Effective Date Expiration Date S kayleigh [place]: [id number] 2016 [employer]Out 00:00:00 [facility] [id number] 2016 [facility] - 00:00:00 STAR (MEDICAID [place] [id number] [place] MEDICARE PART A \T\ [id number] 2016 B 00:00:00 [facility] [id number] 2019 00:00:00 Problems Condition Condition Condition Status Onset Resolution Last Treating Co mments Source Name Details Category Date Date Treatment Clinician Date Body mass Body Mass Problem Active 2021-07 Swe carlitos index 30+ Index 30+ 0-27 Comm uni - obesity - Obesity 00:00: ty 00 [facility] Heavy Heavy Problem Active 2021-07 [facility] drinker Drinker 0-27 [facility]00: [facility] Chronic Chronic Problem Active 2021-07 [facility] kidney 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 Communi disease Disease 00:00: ty stage 3B Stage 3B 00 [facility] Chronic Chronic Problem Active 2020-07 [facility] kidney Kidney 0-04 Communi disease Disease 00:00: ty stage 4 Stage [facility] Hearing Hearing Problem Active [facility] loss Loss 1-28 Communi 00:00: ty [facility] Hyperchole Hyperchole Problem Active 2020-0 S weeny sterolemia sterolemia 1-21 Co mmuni 00:00: ty [facility] Anxiety Anxiety Problem Active 2019- Shanks 1- Communi 00:00: ty 00 [facility] Hypertensi Hypertensi Problem Active 2019-0 S weeny ve ve 1- Communi disorder Disorder 00:00: ty [facility] Asthma Asthma Problem Active 2019-0 Shanks 1- Communi 00:00: ty 00 [facility] Chronic Chronic Problem Active 2019-0 [facility] obstructiv Obstructiv 1-21 Co mmuni e lung e Lung 00:00: ty disease Disease [facility] Gastroesop Gastroesop Problem Active 2020-0 S xander hageal hageal 1- Communi reflux Reflux 00:00: ty disease Disease 00 [facility] Arthritis Arthritis Problem Active 2019-0 Swe carlitos 1-21 Communi 00:00: ty 00 [facility] Arthritis Arthritis Problem Active 2019-0 Swe carlitos of right of Right 1 Commun i knee Knee 00:00: ty 00 [facility] [id number] Prediabete Problem Active Co mmon s [facility] [id number] Phantom Problem Active Comm on 106 limb pain [facility] [id number] Elevated Problem Active Comm on serum Spirit creatinine [facility] 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 Spir [facility] Bilateral Osteoarthr Problem Active Co mmon arthritis itis of Spirit of knees both knees - CH I [facility] Cataract Cataract Problem Active Commo n [facility] Essential Benign Problem Active Common hypertensi essential Spi rit on HTN - [facility] Osteoarthr Primary Problem Active Comm on itis of osteoarthr Spiri t knee itis of - [facility] right knee [facility] 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 Spir it sterolemia - [facility] [id number] 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 - [facility] replacemen [facility] 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 Social History Social Habit Start Date Stop Date Quantity Comments Source Sex Assigned At Com mon [facility] History of Tobacco Use Co mmon [facility] Smoking Status Start Date Stop Date Source Former Smoker [facility] Never Smoker Common [facility] Medications Ordered Filled Start Stop Current Ordering Indication Dosage Frequency Signature Comments Components Source Medication Medication Date Date Medication? Clinician (SIG) Name Name Boy Brunson 0 Yes Donald 1 tablet Comm on 01-15 Holly as needed Spirit 00:00: [facility] Atorvastati Atorvastati 2018-07 Yes Donald 1 tablet Common n Calcium n Calcium 1-20 Holly Spiri t 00:00: - [facility] Atorvastati Atorvastati 2019- No 1{table Atorvastat n Calcium n Calcium 1-20 t} in Calcium 20 MG 20 MG 00:00: 20 MG 00 Arnuity Arnuity Yes Donald 1 puff Comm on [facility] Xopenex HFA Xopenex HFA Yes Donald 1 puff as Common Holly needed [facility] Stiolto Stiolto Yes Donald 2 puffs Com mon Respimat Respimat [facility] Losartan Losartan Yes Donald 1 tablet Common Potassium Potassium Holly Spiri [facility] Amlodipine Amlodipine Yes Donald 1 tablet Common Besylate [facility] Furosemide Furosemide Yes Donald 1 tab(s) Common Holly once a day Spirit orally 90 - days [facility] Pantoprazol Pantoprazol Yes Donald 1 tab(s) Common e Sodium e Sodium Holly once a day S pirit orally - days [facility] Lorazepam Lorazepam Yes Donald 1 tab C ommon Holly [facility] Meloxicam Meloxicam Yes Donald 1 tablet Common Holly [facility] Lorazepam Lorazepam Yes Donald not Co mmon Holly defined [facility] Xarelto Xarelto Yes Donald 1 tablet Co mmon Holly [facility] Xopenex HFA Xopenex HFA No 1{puff_ 6xD Xopenex 45 MCG/ACT 45 MCG/ACT as_need HFA 45 ed} MCG/ACT Meloxicam Meloxicam No Meloxicam Gabapentin Gabapentin No Gabapentin Pantoprazol Pantoprazol No Pantoprazo e Sodium 40 e Sodium 40 le Sodium MG MG 40 MG Lorazepam Lorazepam No Lorazepam 0.5 mg 0.5 mg 0.5 mg Xarelto Xarelto No Xarelto traMADol traMADol No traMADol HCl HCl HCl HYDROcodone HYDROcodone No HYDROcodon -Acetaminop -Acetaminop e-Acetamin hen hen ophen Stiolto Stiolto No 2{puffs QD Stiolto Respimat Respimat } Respimat 2.5-2.5 2.5-2.5 2.5-2.5 MCG/ACT MCG/ACT MCG/ACT LORazepam LORazepam No LORazepam amLODIPine amLODIPine No 1{table QD amLODIPine Besylate 10 Besylate 10 t} Besylate MG MG 10 MG Losartan Losartan No 1{table QD Losartan Potassium Potassium t} Potassium 100 mg 100 mg 100 mg Arnuity Arnuity No 1{puff} QD Arnuity Ellipta 100 Ellipta 100 Ellipta MCG/ACT MCG/ACT 100 MCG/ACT Methocarbam Methocarbam No Methocarba ol ol mol Furosemide Furosemide No Furosemide 20 MG 20 MG 20 MG atorvastati atorvastati No atorvastat Shanks n 20 mg n 20 mg in 20 mg Commu ni tablet TAKE tablet TAKE tablet ty 1 TABLET BY 1 TABLET BY TAKE 1 Hospita MOUTH EVERY MOUTH EVERY TABLET BY l DAY AT DAY AT MOUTH Clinics BEDTIME. BEDTIME. EVERY DAY AT BEDTIME. furosemide furosemide No furosemide [facility] 20 mg 20 mg 20 mg Communi tablet TAKE tablet TAKE tablet ty 1 TABLET BY 1 TABLET BY TAKE 1 Hospita MOUTH DAILY MOUTH DAILY TABLET BY l MOUTH Clinics DAILY lorazepam lorazepam No lorazepam [facility]anks 0.5 mg 0.5 mg 0.5 mg Communi tablet take tablet take tablet ty 1 tab po 1 tab po take 1 tab H ospita daily prn daily prn po daily l prn Clinics losartan losartan No losartan Swe carlitos 100 100 100 Communi mg-hydrochl mg-hydrochl mg-hydroch ty orothiazide orothiazide lorothiazi Hospita 25 mg 25 mg de 25 mg l tablet 1 tablet 1 tablet 1 Cli nics tablet by tablet by tablet by mouth QD mouth QD mouth QD meloxicam meloxicam No meloxicam [facility] 15 mg 15 mg 15 mg Communi tablet 1TPO tablet 1TPO tablet ty DAILY WITH DAILY WITH 1TPO DAILY Hospita FOOD *DO FOOD *DO WITH FOOD l NOT TAKE NOT TAKE *DO NOT Clin ics ASPIRIN* ASPIRIN* TAKE ASPIRIN* pantoprazol pantoprazol No pantoprazo [facility]anks e 40 mg e 40 mg le 40 mg Commu ni tablet,aamir tablet,aamir tablet,del ty yed release yed release ayed H ospita TAKE 1 TAKE 1 release l TABLET BY TABLET BY TAKE 1 Cli nics MOUTH DAILY MOUTH DAILY TABLET BY MOUTH DAILY Trelegy Trelegy No Trelegy [facility] Ellipta 100 Ellipta 100 Ellipta Communi mcg-62.5 mcg-62.5 100 ty mcg-25 mcg mcg-25 mcg mcg-62.5 Hospita powder for powder for mcg-25 mcg l inhalation inhalation powder for Clinics inahle 1 inahle 1 inhalation puff daily puff daily inahle 1 puff daily atorvastati atorvastati No atorvastat [facility]anks n 20 mg n 20 mg in 20 mg Commu ni tablet TAKE tablet TAKE tablet ty 1 TABLET BY 1 TABLET BY TAKE 1 Hospita MOUTH EVERY MOUTH EVERY TABLET BY l DAY AT DAY AT MOUTH Clinics BEDTIME. BEDTIME. EVERY DAY AT BEDTIME. furosemide furosemide No furosemide [facility] 20 mg 20 mg 20 mg Communi tablet TAKE tablet TAKE tablet ty 1 TABLET BY 1 TABLET BY TAKE 1 Hospita MOUTH DAILY MOUTH DAILY TABLET BY l MOUTH Clinics DAILY lorazepam lorazepam No lorazepam [facility] 0.5 mg 0.5 mg 0.5 mg Communi tablet take tablet take tablet ty 1 tab po 1 tab po take 1 tab H ospita daily prn daily prn po daily l prn Clinics losartan losartan No losartan Swe carlitos 100 100 100 Communi mg-hydrochl mg-hydrochl mg-hydroch ty orothiazide orothiazide lorothiazi Hospita 25 mg 25 mg de 25 mg l tablet 1 tablet 1 tablet 1 Cli nics tablet by tablet by tablet by mouth QD mouth QD mouth QD meloxicam meloxicam No meloxicam [facility] 15 mg 15 mg 15 mg Communi tablet TAKE tablet TAKE tablet ty 1 TABLET BY 1 TABLET BY TAKE 1 Hospita MOUTH DAILY MOUTH DAILY TABLET BY l WITH FOOD WITH FOOD MOUTH Clin ics *DO NOT *DO NOT DAILY WITH TAKE TAKE FOOD *DO ASPIRIN* ASPIRIN* NOT TAKE ASPIRIN* pantoprazol pantoprazol No pantoprazo [facility] e 40 mg e 40 mg le 40 mg Commu ni tablet,aamir tablet,aamir tablet,del ty yed release yed release ayed H ospita TAKE 1 TAKE 1 release l TABLET BY TABLET BY TAKE 1 Cli nics MOUTH DAILY MOUTH DAILY TABLET BY MOUTH DAILY Trelegy Trelegy No Trelegy [facility] Ellipta 100 Ellipta 100 Ellipta Communi mcg-62.5 mcg-62.5 100 ty mcg-25 mcg mcg-25 mcg mcg-62.5 [facility] powder for powder for mcg-25 mcg l inhalation inhalation powder for Clinics inahle 1 inahle 1 inhalation puff daily puff daily inahle 1 puff daily atorvastati atorvastati No atorvastat [facility] n 20 mg n 20 mg in 20 mg Commu ni tablet TAKE tablet TAKE tablet ty 1 TABLET BY 1 TABLET BY TAKE 1 Hospita MOUTH EVERY MOUTH EVERY TABLET BY l DAY AT DAY AT MOUTH Clinics BEDTIME. BEDTIME. EVERY DAY AT BEDTIME. dexamethaso dexamethaso No 10mg dexamethas [facility]anks ne sodium ne sodium one sodium Communi phosphate phosphate phosphate ty 10 mg/mL 10 mg/mL 10 mg/mL Hos beryl injection injection injection l solution solution solution Cli nics Take 10 mg Take 10 mg Take 10 mg by by by injection injection injection route. route. route. furosemide furosemide No furosemide [facility] 20 mg 20 mg 20 mg Communi tablet TAKE tablet TAKE tablet ty 1 TABLET BY 1 TABLET BY TAKE 1 Hospita MOUTH DAILY MOUTH DAILY TABLET BY l MOUTH Clinics DAILY Kenalog 40 Kenalog 40 No 40mg Kenalog 40 Shanks mg/mL mg/mL mg/mL Communi suspension suspension suspension ty for for for Hospita injection injection injection l Take 40 mg Take 40 mg Take 40 mg Clinics by by by injection injection injection route. route. route. lorazepam lorazepam No lorazepam [facility] 0.5 mg 0.5 mg 0.5 mg Communi tablet take tablet take tablet ty 1 tab po 1 tab po take 1 tab H ospita daily prn daily prn po daily l prn Clinics losartan losartan No losartan Swe carlitos 100 100 100 Communi mg-hydrochl mg-hydrochl mg-hydroch ty orothiazide orothiazide lorothiazi Hospita 25 mg 25 mg de 25 mg l tablet 1 tablet 1 tablet 1 Cli nics tablet by tablet by tablet by mouth QD mouth QD mouth QD meloxicam meloxicam No meloxicam [facility] 15 mg 15 mg 15 mg Communi tablet TAKE tablet TAKE tablet ty 1 TABLET BY 1 TABLET BY TAKE 1 Hospita MOUTH DAILY MOUTH DAILY TABLET BY l WITH FOOD WITH FOOD MOUTH Clin ics *DO NOT *DO NOT DAILY WITH TAKE TAKE FOOD *DO ASPIRIN* ASPIRIN* NOT TAKE ASPIRIN* pantoprazol pantoprazol No pantoprazo [facility] e 40 mg e 40 mg le 40 mg Commu ni tablet,aamir tablet,aamir tablet,del ty yed release yed release ayed H ospita TAKE 1 TAKE 1 release l TABLET BY TABLET BY TAKE 1 Cli nics MOUTH DAILY MOUTH DAILY TABLET BY MOUTH DAILY Trelegy Trelegy No Trelegy [facility] Ellipta 100 Ellipta 100 Ellipta Communi mcg-62.5 mcg-62.5 100 ty mcg-25 mcg mcg-25 mcg mcg-62.5 Hospita powder for powder for mcg-25 mcg l inhalation inhalation powder for Clinics inahle 1 inahle 1 inhalation puff daily puff daily inahle 1 puff daily atorvastati atorvastati No atorvastat [facility] n 20 mg n 20 mg in 20 mg Commu ni tablet TAKE tablet TAKE tablet ty 1 TABLET BY 1 TABLET BY TAKE 1 Hospita MOUTH EVERY MOUTH EVERY TABLET BY l DAY AT DAY AT MOUTH Clinics BEDTIME. BEDTIME. EVERY DAY AT BEDTIME. furosemide furosemide No furosemide [facility] 20 mg 20 mg 20 mg Communi tablet TAKE tablet TAKE tablet ty 1 TABLET BY 1 TABLET BY TAKE 1 Hospita MOUTH DAILY MOUTH DAILY TABLET BY l MOUTH Clinics DAILY lorazepam lorazepam No lorazepam [facility] 0.5 mg 0.5 mg 0.5 mg Communi tablet take tablet take tablet ty 1 tab po 1 tab po take 1 tab H ospita daily prn daily prn po daily l prn Clinics losartan losartan No losartan Swe carlitos 100 100 100 Communi mg-hydrochl mg-hydrochl mg-hydroch ty orothiazide orothiazide lorothiazi Hospita 25 mg 25 mg de 25 mg l tablet 1 tablet 1 tablet 1 Cli nics tablet by tablet by tablet by mouth QD mouth QD mouth QD meloxicam meloxicam No meloxicam [facility] 15 mg 15 mg 15 mg Communi tablet TAKE tablet TAKE tablet ty 1 TABLET BY 1 TABLET BY TAKE 1 Hospita MOUTH DAILY MOUTH DAILY TABLET BY l WITH FOOD WITH FOOD MOUTH Clin ics *DO NOT *DO NOT DAILY WITH TAKE TAKE FOOD *DO ASPIRIN* ASPIRIN* NOT TAKE ASPIRIN* pantoprazol pantoprazol No pantoprazo [facility] e 40 mg e 40 mg le 40 mg Commu ni tablet,aamir tablet,aamir tablet,del ty yed release yed release ayed H ospita TAKE 1 TAKE 1 release l TABLET BY TABLET BY TAKE 1 Cli nics MOUTH DAILY MOUTH DAILY TABLET BY MOUTH DAILY Trelegy Trelegy No Trelegy [facility] Ellipta 100 Ellipta 100 Ellipta Communi mcg-62.5 mcg-62.5 100 ty mcg-25 mcg mcg-25 mcg mcg-62.5 Hospita powder for powder for mcg-25 mcg l inhalation inhalation powder for Clinics inahle 1 inahle 1 inhalation puff daily puff daily inahle 1 puff daily atorvastati atorvastati No atorvastat [facility] n 20 mg n 20 mg in 20 mg Commu ni tablet Take tablet Take tablet ty 1 tablet 1 tablet Take 1 Hospi ta every day every day tablet l by oral by oral every day Clin ics route at route at by oral bedtime. bedtime. route at bedtime. furosemide furosemide No furosemide [facility] 20 mg 20 mg 20 mg Communi tablet TAKE tablet TAKE tablet ty 1 TABLET BY 1 TABLET BY TAKE 1 Hospita MOUTH DAILY MOUTH DAILY TABLET BY l MOUTH Clinics DAILY lorazepam lorazepam No lorazepam [facility] 0.5 mg 0.5 mg 0.5 mg Communi tablet take tablet take tablet ty 1 tab po 1 tab po take 1 tab H ospita daily prn daily prn po daily l prn Clinics losartan losartan No losartan Swe carlitos 100 100 100 Communi mg-hydrochl mg-hydrochl mg-hydroch ty orothiazide orothiazide lorothiazi Hospita 25 mg 25 mg de 25 mg l tablet 1 tablet 1 tablet 1 Cli nics tablet by tablet by tablet by mouth QD mouth QD mouth QD meloxicam meloxicam No meloxicam [facility] 15 mg 15 mg 15 mg Communi tablet TAKE tablet TAKE tablet ty 1 TABLET BY 1 TABLET BY TAKE 1 Hospita MOUTH DAILY MOUTH DAILY TABLET BY l MOUTH Clinics DAILY pantoprazol pantoprazol No pantoprazo [facility] e 40 mg e 40 mg le 40 mg Commu ni tablet,aamir tablet,aamir tablet,del ty yed release yed release ayed H ospita TAKE 1 TAKE 1 release l TABLET BY TABLET BY TAKE 1 Cli nics MOUTH DAILY MOUTH DAILY TABLET BY MOUTH DAILY Trelegy Trelegy No Trelegy [facility] Ellipta 100 Ellipta 100 Ellipta Communi mcg-62.5 mcg-62.5 100 ty mcg-25 mcg mcg-25 mcg mcg-62.5 [facility] powder for powder for mcg-25 mcg l inhalation inhalation powder for Clinics inahle 1 inahle 1 inhalation puff daily puff daily inahle 1 puff daily atorvastati atorvastati No atorvastat [facility]anks n 20 mg n 20 mg in 20 mg Commu ni tablet Take tablet Take tablet ty 1 tablet 1 tablet Take 1 Hospi ta every day every day tablet l by oral by oral every day Clin ics route at route at by oral bedtime. bedtime. route at bedtime. furosemide furosemide No furosemide [facility] 20 mg 20 mg 20 mg Communi tablet TAKE tablet TAKE tablet ty 1 TABLET BY 1 TABLET BY TAKE 1 Hospita MOUTH DAILY MOUTH DAILY TABLET BY l MOUTH Clinics DAILY lorazepam lorazepam No lorazepam [facility] 0.5 mg 0.5 mg 0.5 mg Communi tablet take tablet take tablet ty 1 tab po 1 tab po take 1 tab H ospita daily prn daily prn po daily l prn Clinics losartan losartan No losartan Swe carlitos 100 100 100 Communi mg-hydrochl mg-hydrochl mg-hydroch ty orothiazide orothiazide lorothiazi Hospita 25 mg 25 mg de 25 mg l tablet 1 tablet 1 tablet 1 Cli nics tablet by tablet by tablet by mouth QD mouth QD mouth QD meloxicam meloxicam No meloxicam [facility] 15 mg 15 mg 15 mg Communi tablet TAKE tablet TAKE tablet ty 1 TABLET BY 1 TABLET BY TAKE 1 Hospita MOUTH DAILY MOUTH DAILY TABLET BY l MOUTH Clinics DAILY pantoprazol pantoprazol No pantoprazo [facility] e 40 mg e 40 mg le 40 mg Commu ni tablet,aamir tablet,aamir tablet,del ty yed release yed release ayed H ospita TAKE 1 TAKE 1 release l TABLET BY TABLET BY TAKE 1 Cli nics MOUTH DAILY MOUTH DAILY TABLET BY MOUTH DAILY Trelegy Trelegy No Trelegy [facility] Ellipta 100 Ellipta 100 Ellipta Communi mcg-62.5 mcg-62.5 100 ty mcg-25 mcg mcg-25 [facility]25 mcg l inhalation inhalation powder for Clinics inahle 1 inahle 1 inhalation puff daily puff daily inahle 1 puff daily Immunizations Ordered Immunization Filled Immunization Date Status Commen ts Source Name Name SARS-COV-2 SARS-COV-2 2020-10-15 Completed [facility] (COVID-19) vaccine, (COVID-19) vaccine, 00:00:00 Hospital Clinics UNSPECIFIED UNSPECIFIED COVID-19 COVID-19 2020-10-15 Completed [facility] ty (SARS-COV-2) (SARS-COV-2) 00:00:00 [facility] linics vaccine, unspecified vaccine, unspecified COVID-19 COVID-19 2020-10-15 Completed [facility] Communi ty (SARS-COV-2) (SARS-COV-2) 00:00:00 [facility] linics vaccine, unspecified vaccine, unspecified COVID-19 COVID-19 2020-10-15 Completed [facility] Communi ty (SARS-COV-2) (SARS-COV-2) 00:00:00 [facility] linics vaccine, unspecified vaccine, unspecified SARS-COV-2 SARS-COV-2 2020-10-15 Completed [facility]i ty (COVID-19) vaccine, (COVID-19) vaccine, 00:00:00 Hospital Clinics UNSPECIFIED UNSPECIFIED SARS-COV-2 SARS-COV-2 2020-10-15 Completed [facility] Communi ty (COVID-19) vaccine, (COVID-19) vaccine, 00:00:00 Hospital Clinics UNSPECIFIED UNSPECIFIED SARS-COV-2 SARS-COV-2 2020-09-17 Completed [facility] Communi ty (COVID-19) vaccine, (COVID-19) vaccine, 00:00:00 Hospital Clinics UNSPECIFIED UNSPECIFIED COVID-19 COVID-19 2020-09-17 Completed [facility] Communi ty (SARS-COV-2) (SARS-COV-2) 00:00:00 [facility] linics vaccine, unspecified vaccine, unspecified COVID-19 COVID-19 2020-09-17 Completed [facility] Communi ty (SARS-COV-2) (SARS-COV-2) 00:00:00 [facility] linics vaccine, unspecified vaccine, unspecified COVID-19 COVID-19 2020-09-17 Completed [facility] Communi ty (SARS-COV-2) (SARS-COV-2) 00:00:00 [facility] linics vaccine, unspecified vaccine, unspecified SARS-COV-2 SARS-COV-2 2020-09-17 Completed [facility]i ty (COVID-19) vaccine, (COVID-19) vaccine, 00:00:00 Hospital Clinics UNSPECIFIED UNSPECIFIED SARS-COV-2 SARS-COV-2 2020-09-17 Completed [facility] Communi ty (COVID-19) vaccine, (COVID-19) vaccine, 00:00:00 Hospital Clinics UNSPECIFIED UNSPECIFIED PNEUMAVAX 23 PNEUMAVAX 23 2019-06-06 Completed Common Spi rit - 15:41:00 [facility] PNEUMAVAX 23 PNEUMAVAX 2019-06-06 Completed Common Spi rit - 00:00:00 [facility] Vital Signs Vital Name Observation Time Observation Value Comments Source BP Diastolic 2022-05-13 00:00:00 74 mm[Hg] [facility] Height 2022-05-13 00:00:00 64 [in_i] [facility] BMI (Body Mass 2022-05-13 00:00:00 37.4 kg/m2 [facility]) [facility] BP Systolic 2022-05-13 00:00:00 142 mm[Hg] [facility] s Body Weight 2022-05-13 00:00:00 3488 [oz_av] [facility] BP Diastolic 2021-11-12 00:00:00 74 mm[Hg] [facility] Height 2021-11-12 00:00:00 64 [in_i] [facility] s BMI (Body Mass 2021-11-12 00:00:00 37.1 kg/m2 [facility]) [facility] BP Systolic 2021-11-12 00:00:00 132 mm[Hg] [facility] s Body Weight 2021-11-12 00:00:00 3456 [oz_av] [facility] BP Diastolic 2021-10-27 00:00:00 82 mm[Hg] [facility] Height 2021-10-27 00:00:00 64 [in_i] [facility] s BMI (Body Mass 2021-10-27 00:00:00 37.8 kg/m2 [facility]) [facility] BP Systolic 2021-10-27 00:00:00 124 mm[Hg] [facility] Body Weight 2021-10-27 00:00:00 3520 [oz_av] [facility] height 2021-07-21 15:30:00 64 [in_i] Common [facility] weight 2021-07-21 15:30:00 214 [lb_av] Common S [facility] temperature 2021-07-21 15:30:00 98.2 [degF] Common S pirit [facility] bmi 2021-07-21 15:30:00 36.73 kg/m2 Common S pirit - [facility] blood pressure 2021-07-21 15:30:00 142 mm[Hg] [facility] - systolic [facility] blood pressure 2021-07-21 15:30:00 88 mm[Hg] [facility] - diastolic [facility] BP Diastolic 2021-04-20 00:00:00 62 mm[Hg] [facility] s Height 2021-04-20 00:00:00 64 [in_i] [facility] s BMI (Body Mass 2021-04-20 00:00:00 36.6 kg/m2 [facility]) [facility] BP Systolic 2021-04-20 00:00:00 122 mm[Hg] [facility] s Body Weight 2021-04-20 00:00:00 3408 [oz_av] [facility] s BP Diastolic 2020-11-04 00:00:00 80 mm[Hg] [facility] s Height 2020-11-04 00:00:00 64 [in_i] [facility] s BP Systolic 2020-11-04 00:00:00 124 mm[Hg] [facility] s BP Diastolic 2020-10-21 00:00:00 94 mm[Hg] [facility] s Height 2020-10-21 00:00:00 64 [in_i] [facility] s BMI (Body Mass 2020-10-21 00:00:00 37.2 kg/m2 [facility]) [facility] BP Systolic 2020-10-21 00:00:00 162 mm[Hg] [facility] s Body Weight 2020-10-21 00:00:00 3472 [oz_av] [facility] s Procedures Procedure Date / Time Performing Clinician Source Performed US, liver 2022-05-13 00:00:00 [facility] US, kidney 2022-05-13 00:00:00 [facility] XR, humerus, 2 or more 2021-10-27 00:00:00 [facility] MAMMO, screening, digital, 2020-10-21 00:00:00 [facility] Clinics Above Elbow Amputation [facility] Kidney Stone Analysis [facility] [facility] Cholecystectomy [facility] Total Hysterectomy [facility] Plan of Care Planned Activity Planned Date Details Comments Source Diagnostic Test 2022-05-13 CMP, serum or [place] [facility] Pending 00:00:00 plasma [code = Hospital Clin ics CMP, serum or plasma] Diagnostic Test 2022-05-13 CBC w/ auto diff Pending sale to [facility] Pending 00:00:00 [code = CBC w/ Hospital Clin ics auto diff] Encounters Start End Encounter Admission Attending Care Care Encounter Source Date/Time Date/Time Type Type Clinicians Facility Department ID 2022-01-25 Outpatient [facility] Common 14:28:00 [facility] 2021-08-13 Outpatient [id number] ENCPL REF [id number] [facility]compa 10:11:06 0713 [facility] [place] 2021-08-12 [facility] 14:30:53 [facility] 2021-08-12 Outpatient zzzLong, [facility] [id number] Common 12:46:45 Arina [id number] [facility] 2021-08-12 Outpatient Arina Matos [facility] Common 11:30:14 [id number] [facility] 2021-08-12 Outpatient Arina Matos [facility] Common 11:28:54 [id number] [facility] 2021-08-12 Outpatient Arina Matos [facility] [id number] - Common 11:27:01 [id number] [facility] 2020-02-07 Outpatient ARLEEN LUNSFORD ENCGEN [id number] ENCGEN 15:39:04 N DONALD 2022-07-14 2022-07-14 Outpatient ERICKSON_R [facility] [id number] [place] 00:00:00 00:00:00 228 [facility] 2022-05-13 2022-05-13 Outpatient ERICKSON_R [facility] [id number] - [place] 00:00:00 00:00:00 027 [facility] 2022-05-13 2022-05-13 Outpatient ERICKSON_R [facility] [id number] [place] 00:00:00 00:00:00 212 [facility] 2022-05-13 2022-05-13 Ray [facility] [place] - [place] 00:00:00 00:00:00 [facility] ty DO: [address] [facility] [address] SHELLEY , Ph. 2021-11-12 2021-11-12 Outpatient ERICKSON_R [facility] 850 - [place] 04:13:00 04:13:00 428 [facility] 2021-11-12 2021-11-12 Outpatient ERICKSON_R [facility] 850 - [place] 04:13:00 04:13:00 615 Commun i ty Hosp[facility] 2021-11-12 2021-11-12 Ray [facility] [place] - [place] 00:00:00 00:00:00 [facility] ty DO: [address] [place] [address] SHELLEY , Ph. 2021-11-12 2021-11-12 Outpatient [place], [facility] [id number] 00:00:00 00:00:00 Ray [id number] Eric [id number] 2021-10-27 2021-10-27 Outpatient ERICKSON_R [facility] [id number] [place] 03:50:00 03:50:00 412 [facility] i [facility] Clinics 2021-10-27 2021-10-27 Ray [facility] [place] - [place] 00:00:00 00:00:00 Eric [facility] DO: [address] a [facility] l [address], HOSPITAL Clinic [place], [place] CL[place]IC, [address] SHELLEY , Ph. 2021-10-27 2021-10-27 Outpatient Shelley [facility] [id number] 00:00:00 00:00:00 Ray [id number] Eric [id number] 2021-07-23 2021-07-23 Outpatient ERICKSON_R [facility] [id number] [place] 05:34:00 05:34:00 106 [facility] 2021-07-21 2021-07-21 [facility] [id number] Co mmon 00:00:00 00:00:00 VISIT Spirit ESTAB PT - CHI LEVEL 4 [facility] 2021-04-20 2021-04-20 Outpatient ERICKSON_R [facility] [id number] [place] 02:52:00 02:52:00 004 [facility] 2021-04-20 2021-04-20 Outpatient ERICKSON_R [facility] [id number] [place] 02:52:00 02:52:00 110 [facility] 2021-04-20 2021-04-20 Outpatient Shelley [facility] [id number] 00:00:00 00:00:00 Ray [id number] Eric [id number] 2021-04-20 2021-04-20 Ray [facility] [place] - [place] 00:00:00 00:00:00 [facility] DO: [address] a [facility], HOSPITAL [place], [place] CLINIC, [address] SHELLEY , Ph. [phone] 2021-03-12 2021-03-12 Outpatient ERICKSON_R [facility] 850 - [place] 02:54:00 02:54:00 [id number] [facility] Clin[facility] 2020-11-04 2020-11-04 Outpatient ERICKSON_R [facility] 850 - [place] 03:56:00 03:56:00 420 [facility] 2020-11-04 2020-11-04 Outpatient Shelley [facility] [id number] 00:00:00 00:00:00 Ray [id number] Eric [id number] 2020-11-04 2020-11-04 Ray [facility] [place] - [place] 20 [place] 00:00:00 00:00:00 [facility] DO: [address] a [facility], HOSPITAL [place], [place] CL[place]IC, [address] SHELLEY , Ph. 2020-10-21 2020-10-21 Outpatient ERICKSON_R [facility] [id number] [place] 05:14:00 05:14:00 406 Commun i ty Hospita [facility] Clinics 2020-10-21 2020-10-21 Outpatient Shelley [facility] [id number] 00:00:00 00:00:00 Ray [id number] Eric [id number] 2020-10-21 2020-10-21 Ray [facility] [place] - [place] 06 [place] 00:00:00 00:00:00 [facility] ty DO: [address] a [facility] l [address], HOSPITAL Clinic [place], [place], [address] SHELLEY , Ph. [phone] 2020-08-26 2020-08-26 Outpatient ERICKSON_R [facility] [id number] [place] 05:58:00 05:58:00 209 Commun i ty Hospita [facility] 2020-07-15 2020-07-15 Outpatient STLMLC [facility] [id number] Common 00:00:00 00:00:00 [facility] 2020-04-15 2020-04-15 Outpatient STLMLC STL[facility] [id number] Common 00:00:00 00:00:00 [facility] 2020-03-04 2020-03-04 [facility] [id number] Common 13:00:00 13:00:00 [facility] 2020-02-12 2020-02-12 [facility] [id number] Common 14:30:00 14:30:00 t [facility] 2020-01-16 2020-01-16 Out[facility] [id number] Common 10:45:00 10:45:00 t [facility] 2020-01-15 2020-01-15 Out[facility] [id number] Common 10:00:00 10:00:00 t [facility] 2019-11-26 2019-11-26 Out[facility] [id number] Common 14:47:00 14:47:00 t [facility] 2019-10-16 2019-10-16 Out[facility] [id number] Common 13:50:00 13:50:00 t [facility] 2019-10-04 2019-10-04 Outpatient Elton Damian [id number] Common 14:01:00 14:01:00 t [facility] 2019-09-21 2019-09-21 Telephone [facility] [id number] 00:00:00 00:00:00 [facility] [id number] [place] [id number] [facility] [phone] Primary & 059 Specialty Care 2019-09-17 2019-09-17 Outpatient Elton Damian [id number] Common 15:39:00 15:39:00 t [facility] Sp[facility] t [facility] 2019-08-29 2019-09-11 Office [facility] [id number] 12:40:30 00:40:53 [facility] [id number] [place] [id number] Professio [phone] nal [address] [place] [address] 2019-09-10 2019-09-10 Laboratory Pc, [facility] [id number] 14:45:04 15:45:04 Only Echo Room 1 [place] [id number] - [place] [id number] Professio [phone] [address] 2019-09-10 2019-09-10 Outpatient R ELENI, [facility] [id number] Univers 15:00:00 15:00:00 JASON de la o f [facility] 2019-08-29 2019-08-29 Outpatient R ELENI, [facility] [id number] Univers 13:40:00 14:10:35 JASON cross o f [facility] 2019-08-06 2019-08-06 Outpatient Elton Condet [id number] Common 10:40:00 10:40:00 t [facility] Bone [facility] Spiri t [facility] 2019-08-03 2019-08-03 [facility] [id number] Common 09:35:00 09:35:00 t Bone Bone and Spiri t and Joint [facility] 2019-07-31 2019-07-31 Outpatient [facility] [id number] Common 14:00:00 14:00:00 t Bone Bone and Spiri t and [facility] 2019-06-06 2019-06-06 Out[facility] [id number] Common 15:00:00 15:00:00 [place] [facility] 2019-05-07 2019-05-07 [facility] [id number] Common 15:00:00 15:00:00 t [facility] Bone and Spiri t and Joint [facility] 2019-04-05 2019-04-05 Out[facility] [id number] Common 14:40:00 14:40:00 [place] [facility] [facility] 2019-01-23 2019-01-23 Outpatient [facility] [id number] Common 15:30:00 15:30:00 t [facility] Bone and Spiri t and [facility] 2019-01-16 2019-01-16 Outpatient [facility] [id number] Common 15:30:00 15:30:00 t Bone Bone and Spiri t and Joint [facility] 2019-01-09 2019-01-09 Outpatient [facility] [id number] Common 14:00:00 14:00:00 t Bone Bone and Spiri t and Joint [facility] 2019-01-09 2019-01-09 Outpatient [facility] [id number] Common 09:40:00 09:40:00 [place] [facility] [facility] 2018-09-04 2018-09-04 Outpatient [facility] [id number] Common 13:30:00 13:30:00 t Bone Bone and Spiri t and Joint [facility] 2018-07-03 2018-07-03 [facility] [id number] Common 10:00:00 10:00:00 t Bone Bone and Spiri t and Joint [facility] 2018-06-26 2018-06-26 Outpatient Elton Condet [id number] Common 14:00:00 14:00:00 t Bone Bone and Spiri t and Joint [facility] 2018-03-21 2018-03-21 Outpatient Elton Condet [id number] Common 15:23:00 15:23:00 [place] [facility] [facility] Family Medicine [facility] 2018-02-16 2018-02-16 Outpatient Elton Condet [id number] Common 10:00:00 10:00:00 t Bone Bone and Spiri t and [facility] Results This patient has no known results.
[2022-08-27] MEDS ORDERED: ONDANSETRON 4 MG/2 ML VIAL ONE (18:25)
[2022-08-27] MEDS ORDERED: NITROGLYCERIN 0.4 MG/TAB SL ONE (18:25)
--- NOTE | 2022-08-27 18:40 | RAD REPORT ---
EXAM DESCRIPTION: RAD - Chest Single View - 08/27/2022 6:22 pm CLINICAL HISTORY: CHEST PAIN COMPARISON: Chest Single View dated 01/26/2020; Chest Pa And Lat (2 Views) dated 01/17/2020; Chest Sing le View dated 08/24/2017; CHEST SINGLE VIEW dated 08/04/2015 FINDINGS: Lines: None. Lungs: Prominence of the pulmonary interstitium. The left lung base is not well visualized. This coul d be secondary to underlying pleural effusion. Pleural: Blunting of the left costophrenic angle. Cardiac: Similar and size configuration . Mediastinum: Within normal limits. Bones: No acute fractures. Other: None IMPRESSION: Partially obscured left lung base could be secondary to effusion, atelectasis, and/or ai rspace disease.
[2022-08-27 19:01] LABS: Absolute Lymphocytes (CBC) 1.8 K/uL (0.7-4.9); Hematocrit 40.9 % (36.0-45.0); Lymphocytes % 16.4 % (15.3-44.8); MCV 87.5 fL (80-100); MPV 7.4 fL (7.6-11.3); RBC Red Blood Cell Count 4.67 M/uL (3.86-4.86)
[2022-08-27 19:20] LABS: Albumin 3.5 g/dL (3.4-5.0); Bilirubin Total 0.4 mg/dL (0.2-1.0); Protein, Total 6.9 g/dL (6.4-8.2); Troponin High Sensitivity 23.1 pg/mL (<58.9)
[2022-08-27 19:21] LABS: Potassium 3.8 mmol/L (3.5-5.1)
--- NOTE | 2022-08-27 19:36 | ER ---
Nurse's Notes [facility] Rickie Name: Samira Lima Age: 72 yrs Sex: Female : 1950 Arrival Date: 08/27/2022 Time: 17:28 Bed 19 Private MD: Diagnosis: Chest pain, unspecified Presentation: 08/27 17:30 Chief complaint: EMS states: chest pain in center of chest with dizziness pale and db diaphoretic. Given breathing treatment by EMS albuterol and Atrovent and Aspirin 324 mg. Coronavirus screen: Vaccine status: Patient reports receiving the 2nd dose of the covid vaccine. Client denies travel out of the [place] in the last 14 days. At this time, the client does not indicate any symptoms associated with coronavirus-19. Ebola Screen: Patient negative for fever greater than or equal to 101.5 degrees Fahrenheit, and additional compatible Ebola Virus Disease symptoms Patient denies exposure to infectious person. Patient denies travel to an Ebola-affected area in the 21 days before illness onset. No symptoms or risks identified at this time. Initial Sepsis Screen: Does the patient meet any 2 criteria? No. Patient's initial sepsis screen is negative. Does the patient have a suspected source of infection? No. Patient's initial sepsis screen is negative. Risk Assessment: Do you want to hurt yourself or someone else? Patient reports no desire to harm self or others. Onset of symptoms was August 27, 2022. Care prior to arrival: Medication(s) given: Albuterol Neb x 1, ASA, 81 mg, x 4, Atrovent Neb x 1. 17:30 Method Of Arrival: EMS db 17:30 Acuity: ZOEY 2 db Triage Assessment: 17:30 General: Appears in no apparent distress. Behavior is calm, cooperative. Pain: db Complains of pain in chest. Cardiovascular: Reports chest pain. Historical: - Allergies: 17:42 No Known Allergies; db - PMHx: 17:42 Asthma; Hypertension; db - Immunization history:: Adult Immunizations unknown, Client reports receiving the 2nd dose of the Covid vaccine. - Social history:: Smoking status: Reported history of juuling and/or vaping. Patient/guardian denies using tobacco, the patient reports quitting approximately 7 years ago. - Family history:: not pertinent. Screenin:20 [facility] ED Fall Risk Assessment (Adult) History of falling in the last 3 months, db including since admission No falls in past 3 months (0 pts) Confusion or Disorientation No (0 pts) Intoxicated or Sedated No (0 pts) Impaired Gait No (0 pts) Mobility Assist Device Used No (0 pt) Altered Elimination No (0 pt) Score/Fall Risk Level 0 - 2 = Low Risk Oriented to surroundings, Maintained a safe environment. Abuse screen: Denies threats or abuse. Denies injuries from another. Nutritional screening: No deficits noted. Tuberculosis screening: No symptoms or risk factors identified. Assessment: 18:35 Reassessment: 1st nitro given. db 18:45 Reassessment: patient refused 2nd nitro states chest pain is gone. db 18:48 Reassessment: Patient and/or family updated on plan of care and expected duration. Pain db level reassessed. Patient is alert, oriented x 3, equal unlabored respirations, skin warm/dry/pink. states pain is better and nausea is better. complains of dizziness that is intermittent Patient states feeling better. Patient states symptoms have improved. General: Appears in no apparent distress. comfortable, Behavior is calm, cooperative. Pain: Complains of pain in chest Pain does not radiate. Pain began suddenly. Neuro: No deficits noted. Level of Consciousness is awake, alert, obeys commands, Oriented to person, place, time, situation. 19:31 Reassessment:. General: Appears comfortable, Behavior is calm, cooperative. Pain: ha1 Denies pain. Neuro: Level of Consciousness is awake, alert, obeys commands, Oriented to person, place, time, situation. Cardiovascular: Denies chest pain, Capillary refill < 3 seconds Patient's skin is warm and dry. Respiratory: Airway is patent Respiratory effort is even, unlabored, Respiratory pattern is regular, symmetrical. GI: No signs and/or symptoms were reported involving the gastrointestinal system. Abdomen is round non-distended. : No signs and/or symptoms were reported regarding the genitourinary system. EENT: No deficits noted. No signs and/or symptoms were reported regarding the EENT system. Derm: Skin is pink, warm \T\ dry. Musculoskeletal: Circulation, motion, and sensation intact. 19:33 Reassessment: at bedside explaining the need for admit. ha1 20:30 Reassessment: Patient and/or family updated on plan of care and expected duration. Pain ha1 level reassessed. Patient is alert, oriented x 3, equal unlabored respirations, skin warm/dry/pink. Patient denies pain at this time. Patient states feeling better. Patient states symptoms have improved. 21:30 Reassessment: Patient and/or family updated on plan of care and expected duration. Pain ha1 level reassessed. Patient is alert, oriented x 3, equal unlabored respirations, skin warm/dry/pink. Patient denies pain at this time. 22:15 Reassessment: Patient and/or family updated on plan of care and expected duration. Pain ha1 level reassessed. Patient is alert, oriented x 3, equal unlabored respirations, skin warm/dry/pink. Patient denies pain at this time. Patient states feeling better. Patient states symptoms have improved. Vital Signs: 17:30 BP 135 / 68; Pulse 85; Resp 17; Temp 98.2(O); Pulse Ox 95% on R/A; Weight 97.98 kg; db Height 5 ft. 4 in. (162.56 cm); Pain 8/10; 18:35 BP 118 / 56; Pulse 88; Resp 18; Pulse Ox 95% on R/A; db 18:48 BP 122 / 65; Pulse 88; Resp 18; db 19:32 BP 115 / 66; Pulse 78; Resp 17 S; Pulse Ox 94% ; ha1 17:30 Body Mass Index 37.08 (97.98 kg, 162.56 cm) db ED Course: 17:28 Patient arrived in ED. eb 17:29 Fredis Stone MD is Attending Physician. rt 17:39 Lia Barlow, SORAIDA is Primary Nurse. db 17:42 Triage completed. db 17:43 Arm band placed on left wrist. db 18:24 Chest Single View XRAY In Process Unspecified. EDMS 18:47 Inserted saline lock: 20 gauge in left hand, using aseptic technique. Blood collected. db 19:10 Client placed on continuous cardiac and pulse oximetry monitoring. NIBP monitoring ha1 applied. 19:10 Patient has correct armband on for positive identification. Bed in low position. Call ha1 light in reach. Side rails up X 1. Adult w/ patient. 19:34 Kirill Hills MD is Hospitalizing Provider. rt 20:36 SARS RAPID Sent. kl 22:33 No provider procedures requiring assistance completed. Patient admitted, IV remains in ha1 place. Patient maintains SpO2 saturation greater than 95% on room air. Administered Medications: 18:48 Drug: Nitroglycerin 0.4 mg Route: Sublingual; db 18:48 Drug: Zofran (Ondansetron) 4 mg Route: IVP; Site: left hand; db Medication: 22:34 VIS not applicable for this client. ha1 Outcome: 19:35 Decision to Hospitalize by Provider. rt 22:33 Admitted to Med/surg accompanied by tech, via wheelchair, room 218, with chart, Report ha1 called to SORAIDA Diez 22:33 Condition: stable 22:33 Discharge instructions given to patient, family, Instructed on the need for admit, Demonstrated understanding of instructions. 22:36 Patient left the ED. ha1 Signatures: Dispatcher [facility] EDMS Zully Bowie RN RN kl Botello, Elizabeth eb Ayala, Heidy, RN RN [facility] Lia Barlow RN RN db [place], Ryan, MD MD rt
--- NOTE | 2022-08-27 19:36 | EDPHYS ---
Physician Documentation [facility] Name: Samira Lima Age: 72 yrs Sex: Female : 1950 Arrival Date: 08/27/2022 Time: 17:28 Bed 19 Private MD: ED Physician Fredis Stone HPI: 08/27 19:01 This 72 yrs old Female presents to ER via EMS with complaints of Chest Pain > 30 y/o. rt 19:01 The patient or guardian reports chest pain that is located primarily in the substernal rt area. 19:02 Onset: just prior to arrival. The pain does not radiate. Associated signs and symptoms: rt Pertinent positives: diaphoresis, shortness of breath. 19:36 The chest pain is described as aching. Duration: The patient or guardian reports a rt single episode. Patient presents to the ED with substernal chest pain, nonradiating associate with diaphoresis, shortness of breath.. Historical: - Allergies: 17:42 No Known Allergies; db - PMHx: 17:42 Asthma; Hypertension; db - Immunization history:: Adult Immunizations unknown, Client reports receiving the 2nd dose of the Covid vaccine. - Social history:: Smoking status: Reported history of juuling and/or vaping. Patient/guardian denies using tobacco, the patient reports quitting approximately 7 years ago. - Family history:: not pertinent. ROS: 19:36 Constitutional: Negative for fever, chills, and weight loss, Abdomen/GI: Negative for rt abdominal pain, nausea, vomiting, diarrhea, and constipation, MS/Extremity: Negative for injury and deformity, Neuro: Negative for headache, weakness, numbness, tingling, and seizure, Psych: Negative for depression, anxiety, suicide ideation, homicidal ideation, and hallucinations. 19:36 Cardiovascular: Positive for chest pain, Negative for edema. 19:36 Respiratory: Positive for shortness of breath, Negative for cough. Exam: 19:36 Constitutional: This is a well developed, well nourished patient who is awake, alert, rt and in no acute distress. Head/Face: Normocephalic, atraumatic. Chest/axilla: Normal chest wall appearance and motion. Nontender with no deformity. No lesions are appreciated. Cardiovascular: Regular rate and rhythm with a normal S1 and S2. No gallops, murmurs, or rubs. Normal PMI, no JVD. No pulse deficits. Respiratory: Lungs have equal breath sounds bilaterally, clear to auscultation and percussion. No rales, rhonchi or wheezes noted. No increased work of breathing, no retractions or nasal flaring. Abdomen/GI: Soft, non-tender, with normal bowel sounds. No distension or tympany. No guarding or rebound. No evidence of tenderness throughout. Skin: Warm, dry with normal turgor. Normal color with no rashes, no lesions, and no evidence of cellulitis. Neuro: Awake and alert, GCS 15, oriented to person, place, time, and situation. Cranial nerves II-XII grossly intact. Motor strength 5/5 in all extremities. Sensory grossly intact. Cerebellar exam normal. Normal gait. Psych: Awake, alert, with orientation to person, place and time. Behavior, mood, and affect are within normal limits. 19:36 ECG was reviewed by the Attending Physician. 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 Vital Signs: 17:30 BP 135 / 68; Pulse 85; Resp 17; Temp 98.2(O); Pulse Ox 95% on R/A; Weight 97.98 kg; db Height 5 ft. 4 in. (162.56 cm); Pain 8/10; 18:35 BP 118 / 56; Pulse 88; Resp 18; Pulse Ox 95% on R/A; db 18:48 BP 122 / 65; Pulse 88; Resp 18; db 19:32 BP 115 / 66; Pulse 78; Resp 17 S; Pulse Ox 94% ; ha1 17:30 Body Mass Index 37.08 (97.98 kg, 162.56 cm) db MDM: 17:29 Patient medically screened. rt 19:36 Differential diagnosis: DE, pneumonia, PE, pneumothorax, CHF. HEART Score: History: rt Highly Suspicious (2), ECG: Non specific repolarization disturbance / LBTB / PM (1), Age: > or = 65 years (2), Risk Factors: > or = 3 Risk factors for atherosclerotic disease (2), Troponin: < or = 1 x Normal Limit (0), Total Score = 7. The patient was not given aspirin in the Emergency Department. Patient reports taking aspirin within the past 24 hours. Data reviewed: vital signs, nurses notes, lab test result(s), EKG, radiologic studies. Consideration of Admission/Observation Patient was admitted/placed on observation. Management of patient was discussed with the following: Hospitalist: Agrees to admit. I considered the following discharge prescriptions or medication management in the emergency department Medications were administered in the Emergency Department. See MAR. Independent interpretation of the following test(s) in the Emergency Department X-Ray: My interpretation is No pneumonia. Test considered but Not performed: CT: Low suspicion for PE, CT scan not indicated. External Records Reviewed: Outpatient labs: Creatinine at baseline. Care significantly affected by the following chronic conditions: Hypertension, Chronic Obstructive Pulmonary Disease. Counseling: I had a detailed discussion with the patient and/or guardian regarding: the historical points, exam findings, and any diagnostic results supporting the discharge/admit diagnosis, lab results, radiology results, the need for further work-up and treatment in the hospital. Response to treatment: the patient's symptoms have resolved after treatment. 08/27 17:43 Order name: CBC with Diff; Complete Time: 19:26 rt 08/27 17:43 Order name: CMP; Complete Time: 19:26 rt 08/27 17:43 Order name: Troponin High Sensitivity; Complete Time: 19:26 rt 08/27 17:43 Order name: BNP; Complete Time: 19:26 rt 08/27 17:43 Order name: Chest Single View XRAY; Complete Time: 18:41 rt 08/27 19:36 Order name: SARS RAPID; Complete Time: 20:44 sb4 08/27 17:43 Order name: EKG; Complete Time: 17:44 rt 08/27 17:43 Order name: EKG - Nurse/Tech; Complete Time: 19:10 rt EC:36 Rate is 74 beats/min. Rhythm is regular, Normal Sinus Rhythm with Right bundle branch rt block. QRS Epworth is Normal. MO interval is normal. QRS interval is normal. QT interval is normal. Interpreted by me. Administered Medications: 18:48 Drug: Nitroglycerin 0.4 mg Route: Sublingual; db 18:48 Drug: Zofran (Ondansetron) 4 mg Route: IVP; Site: left hand; db Disposition Summary: 08/27/22 19:35 Hospitalization Ordered Hospitalization Status: Observation rt Provider: Kirill [place] rt Location: Telemetry/[facility] (observation) rt Condition: Stable rt Problem: new rt Symptoms: are resolved rt Bed/Room Type: Standard rt Room Assignment: 218(08/27/22 21:03) mw Diagnosis - Chest pain, unspecified rt Forms: - Medication Reconciliation Form rt - SBAR form rt Signatures: Dispatcher [employer] EDLiza Marino RN RN mw Benton, Danielle, RN RN db Brown, Sophia, PA-C PA-C sb4 Fredis Stone MD MD rt Corrections: (The following items were deleted from the chart) : 19:35 rt mw
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
[2022-08-27 20:37] LABS: SARS-CoV-2 Antigen Rapid Res Negative (Negative)
[2022-08-27] MEDS ORDERED: ONDANSETRON 4 MG/2 ML VIAL IV PRN (21:28)
[2022-08-27] MEDS ORDERED: ATORVASTATIN 40 MG TAB PO SCH (21:28)
[2022-08-27] MEDS ORDERED: ACETAMINOPHEN 500 MG TAB PO PRN (21:28)
[2022-08-27 21:38] VITALS: BMI 37.0
[2022-08-28 05:07] LABS: Thyroid Stimulating Hormone 2.06 uIU/mL (0.358-3.740); Troponin High Sensitivity 33.2 pg/mL (<58.9)
[2022-08-28] MEDS ORDERED: ASPIRIN EC 81 MG TAB PO SCH (09:00)
[2022-08-28] MEDS ORDERED: ENOXAPARIN 40 MG/0.4 ML SQ SCH (09:00)
[2022-08-28] MEDS ORDERED: NA CHLORIDE 0.9% 1,000 ML IV SCH (15:00)
[2022-08-28 15:59] VITALS: O2SAT 91
[2022-08-28 16:06] VITALS: BP 127/59; TEMP 97.9
== END 2022-08-28 19:13 | disposition left against medical advice (07) ==
LOC: ER 17:27 → ERHOLD 19:39 → 2ND 21:18
PROVIDERS: ADMIT Hospitalist; ATTEND Hospitalist
DX: R07.9 Chest pain, unspecified (principal); I10 Essential (primary) hypertension; Z87.891 Personal history of nicotine dependence; Z80.1 Family history of malignant neoplasm of trachea, bronchus and lung; Z82.49 Family history of ischemic heart disease and other diseases of the circulatory system; Z83.3 Family history of diabetes mellitus; Z20.822 Contact with and (suspected) exposure to COVID-19
CPT/HCPCS: 85025; 36415; 80061; 85379; 84443; 84484 ×3; 80053; 83880; 71045; 96374; 99285; 87811; J1650; J7030; J2405; 93005; G0378

== ENCOUNTER 2024-02-24 03:32 | Emergency (ER) | payer OTHER ==
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
[2024-02-24] MEDS ORDERED: ACETAMINOPHEN 500 MG TAB ONE (03:43)
[2024-02-24 04:19] LABS: Absolute Basophils 0.1 K/uL (0-0.5); Absolute Eosinophils 0.2 K/uL (0-0.5); Absolute Lymphocytes (CBC) 1.8 K/uL (0.7-4.9); Absolute Monocytes 0.8 K/uL (0.1-1.3); Absolute Neutrophil 10.7 K/uL (1.8-8.0); Basophils % 0.5 % (0-1.3); Eosinophils % 1.5 % (0-4.4); Hematocrit 38.7 % (36.0-45.0); Lymphocytes % 13.3 % (15.3-44.8); MCH 29.4 pg (27.0-35.0); MCHC 33.5 g/dL (32.0-36.0); MCV 87.8 fL (80-100); MPV 7.6 fL (7.6-11.3); Monocytes % 6.2 % (3.3-12.3); Neutrophils % 78.5 % (41.7-73.7); Nucleated Red Blood Cells % 0.1 % (0-0); Platelets 387 thou/uL (152-406); RBC Red Blood Cell Count 4.41 M/uL (3.86-4.86); Red Cell Distribution Width 14.9 % (12.1-15.2)
[2024-02-24 04:26] LABS: Albumin 3.7 g/dL (3.4-5.0); Albumin/Globulin Ratio 1.1 (1.1-1.8); Anion Gap 11.2 mEq/L (5.0-15.0); Bilirubin Total 0.4 mg/dL (0.2-1.0); Globulin 3.3 g/dL (2.3-3.5); Potassium 4.2 mEq/L (3.5-5.1)
--- NOTE | 2024-02-24 04:29 | ER ---
Nurse's Notes [facility] Name: Samira Lima Age: 73 yrs Sex: Female : 1950 Arrival Date: 02/24/2024 Time: 03:32 Bed 8 Private MD: Diagnosis: Other hemorrhoids Presentation: 02/23 03:36 Chief complaint: Patient states: I was sitting on the toilet pooping and when I looked bm8 down it was all bright red blood. Coronavirus screen: At this time, the client does not indicate any symptoms associated with coronavirus-19. Ebola Screen: Patient negative for fever greater than or equal to 101.5 degrees Fahrenheit, and additional compatible Ebola Virus Disease symptoms Patient denies exposure to infectious person. Patient denies travel to an Ebola-affected area in the 21 days before illness onset. No symptoms or risks identified at this time. Initial Sepsis Screen: Does the patient meet any 2 criteria? No. Patient's initial sepsis screen is negative. Does the patient have a suspected source of infection? No. Patient's initial sepsis screen is negative. Risk Assessment: Do you want to hurt yourself or someone else? Patient reports no desire to harm self or others. Onset of symptoms was February 24, 2024 at 02:30. Care prior to arrival: Medication(s) given: Normal saline infusion, 500 mL, IV initiated. 22 GA, in the left hand, Glucose check: 140. 03:36 Method Of Arrival: EMS: [facility] bm8 03:36 Acuity: ZOEY 3 bm8 Triage Assessment: 03:41 General: Appears in no apparent distress. comfortable, Behavior is calm, cooperative, bm8 appropriate for age. Pain: Complains of pain in suprapubic area, right lower quadrant and left lower quadrant Pain does not radiate. Pain currently is 8 out of 10 on a pain scale. Quality of pain is described as BLOATED. EENT: No deficits noted. No signs and/or symptoms were reported regarding the EENT system. Neuro: No deficits noted. Level of Consciousness is awake, alert, obeys commands, Oriented to person, place, time, situation, Appropriate for age. Cardiovascular: Denies chest pain, Capillary refill < 3 seconds Patient's skin is warm and dry. Respiratory: Airway is patent Respiratory effort is even, unlabored, Respiratory pattern is regular, symmetrical. GI: Abdomen is round non-distended, Bowel sounds present X 4 quads. Reports lower abdominal pain, bloating, rectal bleeding, bloody stool, Pain is 8 out of 10 on a pain scale. : No signs and/or symptoms were reported regarding the genitourinary system. Derm: No signs and/or symptoms reported regarding the dermatologic system. Musculoskeletal: No signs and/or symptoms reported regarding the musculoskeletal system. Historical: - Allergies: 03:41 No Known Allergies; bm8 - Home Meds: 03:39 amlodipine 10 mg tab 1 tab once daily for Hypertension [Active]; Arnuity Ellipta 200 bm8 mcg/actuation inhalation dsdv 1 puff once daily [Active]; furosemide 20 mg Oral tab 1 tab once daily [Active]; lorazepam 0.5 mg Oral tab 1 tab as needed [Active]; losartan 100 mg Oral tab 1 tab once daily [Active]; meloxicam 15 mg Oral tab 1 tab once daily [Active]; pantoprazole 40 mg Oral TbEC 1 tab once daily [Active]; Stiolto Respimat 2.5-2.5 mcg/actuation inhalation mist 2 puffs once daily [Active]; - PMHx: 03:39 Asthma; Hypertension; HTN (Hypertension); HLD (Hypertension); bm8 - PSHx: 03:41 COLONOSCOPY; bm8 - Immunization history:: Adult Immunizations unknown. - Infectious Disease History:: Denies. - Social history:: Smoking status: Reported history of juuling and/or vaping. Screenin:00 [facility] ED Fall Risk Assessment (Adult) History of falling in the last 3 months, tm6 including since admission No falls in past 3 months (0 pts) Confusion or Disorientation No (0 pts) Intoxicated or Sedated No (0 pts) Impaired Gait No (0 pts) Mobility Assist Device Used No (0 pt) Altered Elimination No (0 pt) Score/Fall Risk Level 0 - 2 = Low Risk Oriented to surroundings, Maintained a safe environment, Educated pt \T\ family on fall prevention, incl call for assistance when getting out of bed. Abuse screen: Denies threats or abuse. Denies injuries from another. Nutritional screening: No deficits noted. Tuberculosis screening: No symptoms or risk factors identified. Assessment: 03:42 Reassessment: see triage assessment. bm8 04:30 Reassessment: Patient appears in no apparent distress at this time. Patient and/or tm6 family updated on plan of care and expected duration. Pain level reassessed. Patient is alert, oriented x 3, equal unlabored respirations, skin warm/dry/pink. Vital Signs: 03:36 BP 124 / 80; Pulse 78; Resp 18; Temp 99.1; Pulse Ox 98% ; Weight 87.54 kg; Height 5 ft. bm8 4 in. ; Pain 8/10; 04:26 BP 135 / 113; Pulse 68; Resp 19; Temp 99; Pulse Ox 95% on R/A; Pain 0/10; tm6 03:36 Body Mass Index 33.13 (87.54 kg, 162.56 cm) bm8 03:36 Pain Scale: Adult bm8 04:26 Pain Scale: Adult tm6 ED Course: 03:35 Patient arrived in ED. ec2 03:36 Maxx Tinoco MD is Attending Physician. ec2 03:36 Hang Arriaza, RN is Primary Nurse. bm8 03:39 Triage completed. bm8 03:41 Arm band placed on left wrist. bm8 03:59 Lipase Sent. tm6 03:59 CMP Sent. tm6 03:59 CBC with Diff Sent. tm6 03:59 Inserted saline lock: 20 gauge in left forearm, using aseptic technique. Blood tm6 collected. Flushed with 10 mL NS inserted by Hang Jarvis using ultrasound. 04:00 Patient has correct armband on for positive identification. Bed in low position. Call tm6 light in reach. Side rails up X2. Provided Education on: use of call lepe. Client placed on continuous cardiac and pulse oximetry monitoring. NIBP monitoring applied. potline monitor on. Pulse ox on. NIBP on. Door closed. Noise minimized. Warm blanket given. Pillow given. 04:31 No provider procedures requiring assistance completed. IV discontinued, intact, tm6 bleeding controlled, No redness/swelling at site. Pressure dressing applied. Administered Medications: 03:50 Drug: Acetaminophen PO 1000 mg PO once Route: PO; tm6 04:30 Follow up: Response: No adverse reaction; Marked relief of symptoms tm6 Medication: 04:31 VIS not applicable for this client. tm6 Outcome: 04:28 Discharge ordered by . ec2 04:31 Discharged to home via wheelchair, with family, tm6 04:31 Condition: stable 04:31 Discharge instructions given to patient, family, Instructed on discharge instructions, follow up and referral plans. Demonstrated understanding of instructions, follow-up care, 04:35 Patient left the ED. tm6 Signatures: Maxx Tinoco MD MD ec2 Lizeth Dang RN RN tm6 Hang Arriaza RN RN bm8 Corrections: (The following items were deleted from the chart) 03:42 03:39 PMHx: GERD (Hypertension); bm8 bm8 04:35 04:26 BP 135 / 113; Pulse 68bpm; Pulse Ox 95% RA; tm6 tm6
--- NOTE | 2024-02-24 04:29 | EDPHYS ---
Physician Documentation [facility] [address] Name: Samira Lima Age: 73 yrs Sex: Female : 1950 Arrival Date: 02/24/2024 Time: 03:32 Bed 8 Private MD: ED Physician Maxx Tinoco HPI: 02/23 03:48 This 73 yrs old Female presents to ER via EMS with complaints of Rectal ec2 Bleeding. 03:48 Patient arrives today for evaluation of rectal bleeding. States that she had some bouts ec2 of diarrhea, states that she noted some blood-tinged in the stool. States that she had a colonoscopy 10 days ago and had some polyps removed. Patient reports no significant abdominal pain, no nausea or vomiting.. Historical: - Allergies: 03:41 No Known Allergies; bm8 - Home Meds: 03:39 amlodipine 10 mg tab 1 tab once daily for Hypertension [Active]; Arnuity Ellipta 200 bm8 mcg/actuation inhalation dsdv 1 puff once daily [Active]; furosemide 20 mg Oral tab 1 tab once daily [Active]; lorazepam 0.5 mg Oral tab 1 tab as needed [Active]; losartan 100 mg Oral tab 1 tab once daily [Active]; meloxicam 15 mg Oral tab 1 tab once daily [Active]; pantoprazole 40 mg Oral TbEC 1 tab once daily [Active]; Stiolto Respimat 2.5-2.5 mcg/actuation inhalation mist 2 puffs once daily [Active]; - PMHx: 03:39 Asthma; Hypertension; HTN (Hypertension); HLD (Hypertension); bm8 - PSHx: 03:41 COLONOSCOPY; bm8 - Immunization history:: Adult Immunizations unknown. - Infectious Disease History:: Denies. - Social history:: Smoking status: Reported history of juuling and/or vaping. ROS: 03:48 Constitutional: as per hpi ec2 Exam: 03:48 Constitutional: GEN: NAD Head: atraumatic Eyes: EOMI Ears: External ears are ec2 normal. CV: regular rate LUNGS: no respiratory distress ABD: non-distended, soft, nontender, no guarding, nonrigid. examination: Performed under supervision, lazaro Aguilera, hemorrhoids present at the 12 o'clock position. SKIN: no evidence of rashes MSK: no evidence of trauma NEURO: moves all extremities equally Vital Signs: 03:36 BP 124 / 80; Pulse 78; Resp 18; Temp 99.1; Pulse Ox 98% ; Weight 87.54 kg; Height 5 ft. bm8 4 in. ; Pain 8/10; 04:26 BP 135 / 113; Pulse 68; Resp 19; Temp 99; Pulse Ox 95% on R/A; Pain 0/10; tm6 03:36 Body Mass Index 33.13 (87.54 kg, 162.56 cm) bm8 03:36 Pain Scale: Adult bm8 04:26 Pain Scale: Adult tm6 MDM: 03:36 Patient medically screened. ec2 03:48 Data reviewed: vital signs. ED course: Patient arrives today for evaluation of rectal ec2 bleeding. Examination remarkable for well-appearing nontoxic dividual's hemorrhoids present on rectal examination. Will obtain lab work. Evaluating for anemia. Additionally considered other process such as diverticulosis, polyp, hemorrhoids, fissure. 04:28 ED course: Metabolic profile reassuring, renal dysfunction noted, CBC without evidence ec2 of anemia, slight leukocytosis noted. On reassessment patient well-appearing no acute distress. Will discharge home. Return precautions given. Instructed to follow-up with GI. . 02/23 03:39 Order name: CBC with Diff; Complete Time: 04:25 ec2 02/23 03:39 Order name: CMP; Complete Time: 04:27 ec2 02/23 03:39 Order name: Lipase; Complete Time: 04:27 ec2 02/23 03:39 Order name: IV Saline Lock; Complete Time: 03:59 ec2 02/23 03:39 Order name: Labs collected and sent; Complete Time: 03:59 ec2 Administered Medications: 03:50 Drug: Acetaminophen PO 1000 mg PO once Route: PO; tm6 04:30 Follow up: Response: No adverse reaction; Marked relief of symptoms tm6 Disposition Summary: 02/24/24 04:28 Discharge Ordered Notes: Location: Home ec2 Condition: Stable ec2 Diagnosis - Other hemorrhoids ec2 Followup: ec2 - With: Private Physician - When: - Reason: Re-evaluation by your physician Discharge Instructions: - Discharge Summary Sheet ec2 - Hemorrhoids ec2 Forms: - Medication Reconciliation Form ec2 - Antibiotic Education ec2 - Prescription Opioid Use ec2 - Patient Portal Instructions ec2 - Leadership Thank You Letter ec2 Signatures: Dispatcher [employer] EDMS Maxx Tinoco MD MD ec2 Lizeth Dang RN RN tm6 Hang Arriaza RN RN bm8 Corrections: (The following items were deleted from the chart) 03:40 03:40 CBC+H.LAB.BRZ ordered. EDMS EDMS 03:40 03:40 COMPREHENSIVE METABOLIC PANEL+C.LAB.BRZ ordered. EDMS EDMS 03:40 03:40 LIPASE+C.LAB.BRZ ordered. EDMS EDMS 03:42 03:39 PMHx: GERD (Hypertension); bm8 bm8
[2024-02-24 04:56] VITALS: BP 135/113; TEMP 99; O2SAT 95
== END 2024-02-24 04:35 | disposition home or self-care (01) ==
LOC: ER 03:32
DX: K64.8 Other hemorrhoids (principal); Z98.890 Other specified postprocedural states
CPT/HCPCS: 36415; 80053; 83690; 85025; 99284